=== PATIENT | male | born 1950 | race Caucasian/White ===

== ENCOUNTER 2016-12-23 14:49 | Inpatient (IN) | payer OTHER, MEDICAID ==
[2016-12-23] MEDS ORDERED: NS 1,000 ML IV ONE (15:00)
--- NOTE | 2016-12-23 15:06 | EDPHY ---
HPI/HX/ROS/PE/MDM Narrative: CHIEF COMPLAINT: AMS HPI: The patient is a 66 y/o male, with a history of dementia and seizure disorder, arriving via EMS with acute altered mentation this afternoon. He was last seen normal at 11:00 today, about 4 hours ago, prior to taking a nap. Per EMS, facility reports he generally walks and is interactive with some baseline orientation confusion. After waking him from a nap this afternoon, he was unable to walk, follow commands, or speak clearly. This symptoms continued during transport to the ED. EMS reports his BGL was 108 and his SpO2 on room air was in the 85% range. He is able to follow commands for me and tell me who he is. His speech continues to be mildly garbled and his right arm is weaker than his left. He denies pain but mentions blurred vision. He is DNR status. REVIEW OF SYSTEMS: Aside from elements discussed in the HPI, a comprehensive 10-point review of systems was reviewed and is negative. PMH: COPD, dementia, bipolar disorder, anxiety, GERD, BPH, seizure disorder - Keppra Prior medical records reviewed including ED visit 12/21/15 for suicidal ideation. SOCIAL HISTORY: Lives at [facility]. Formerly homeless and alcoholic. PHYSICAL EXAM: General:Patient is alert, in no acute distress. ENT:Eyes are normal to inspection. ENT inspection normal. Neck: Normal inspection. Full range of motion. Respiratory:No respiratory distress. Breath sounds somewhat diminished bilaterally. Cardiovascular: Regular rate and rhythm. Strong peripheral pulses. Normal cap refill. Abdomen:The abdomen is nontender to palpation. There are no peritoneal signs. There are normal bowel sounds. Back: Normal to inspection. No tenderness to palpation. Skin: Normal color. No rash. Warm and dry. Extremities: Full range of motion. 2+ pitting edema lower extremities bilaterally, otherwise normal appearance. Neuro: Oriented x1. Follows commands. Right arm weaker than left, but able to resist gravity. Equal leg raise. Mildly garbled speech. ED Course: 1452: Met EMS upon arrival and took report. IV established. Labs drawn including CBC, CHEM, troponin, BMP, PTPTT. Patient placed on epic cupid analyst. Chest x-ray and head CT ordered. Study: CT of the Head Indication: AMS, arm weakness Results: CT scan of the head was obtained. The results of the study are nothing acute. The study was read by the radiologist, Dr. Pinto. I viewed the images myself on the PACS system. Study: Chest x-ray Indication: AMS, arm weakness Results: Chest x-ray was obtained. The results of the study are Diffuse interstitial edema versus pneumonitis versus new chronic interstitial lung disease since 2008. The study was read by the radiologist, Dr. Pinto. I viewed the images myself on the PACS system. The 12 lead EKG was interpreted by myself. EKG shows sinus rhythm rate 79. See hard copy and/or "tracemaster" electronic copy for interpretation. 1650: Spoke with Dr. Gross, hospitalist. She accepts admission. MDM: This patient presents with altered mental status, hypoxia. The etiology is unclear. I doubt stroke and there is no evidence of hemorrhagic stroke. Patient does not appear septic. He does not appear to have pneumonia. He requires admission the hospital for further workup. Given his history, I think there is a decent chance this represents a seizure with postictal confusion. - Data Points Laboratory Results: Laboratory Results 12/23/16 15:05 12/23/16 15:05 12/23/16 15:05 WBC 6.04 10^3/uL (3.80-9.50) RBC 4.47 10^6/uL (4.40-6.38) Hgb 10.9 L g/dL (13.7-17.5) Hct 36.6 L % (40.0-51.0) MCV 81.9 fL (81.5-99.8) MCH 24.4 L pg (27.9-34.1) MCHC 29.8 L g/dL (32.4-36.7) RDW 18.0 H % (11.5-15.2) Plt Count 263 10^3/uL (150-400) MPV 10.2 fL (8.7-11.7) Neut % (Auto) 64.9 % (39.3-74.2) Lymph % (Auto) 17.2 % (15.0-45.0) Rains % (Auto) 13.1 H % (4.5-13.0) Eos % (Auto) 3.3 % (0.6-7.6) Baso % (Auto) 1.3 % (0.3-1.7) Nucleat RBC Rel Count 0.5 H % (0.0-0.2) Absolute Neuts (auto) 3.92 10^3/uL (1.70-6.50) Absolute Lymphs (auto) 1.04 10^3/uL (1.00-3.00) Absolute Monos (auto) 0.79 10^3/uL (0.30-0.80) Absolute Eos (auto) 0.20 10^3/uL (0.03-0.40) Absolute Basos (auto) 0.08 10^3/uL (0.02-0.10) Absolute Nucleated RBC 0.03 H 10^3/uL (0-0.01) Immature Gran % 0.2 % (0.0-1.1) Immature Gran # 0.01 10^3/uL (0.00-0.10) PT 14.6 SEC (12.0-15.0) INR 1.15 (0.83-1.16) APTT 34.8 SEC (23.0-38.0) Sodium 144 mEq/L (134-144) Potassium 4.2 mEq/L (3.5-5.2) Chloride 110 mEq/L (97-110) Carbon Dioxide 21 L mEq/l (22-31) Anion Gap 13 mEq/L (8-16) BUN 16 mg/dL (7-23) Creatinine 0.7 mg/dL (0.7-1.3) Estimated GFR > 60 Glucose 89 mg/dL (70-100) Calcium 9.6 mg/dL (8.5-10.4) Troponin I < 0.012 ng/mL (0-0.034) NT-Pro-B Natriuret Pep 576 H pg/mL (0-125) Medications Given: Discontinued Medications Sodium Chloride (Ns) 1,000 mls @ 0 mls/hr IV ONCE ONE PRN Reason: Wide Open Stop: 12/23/16 15:01 Last Admin: 12/23/16 15:22 Dose: 1,000 mls General Time Seen by Provider: 12/23/16 14:52 Initial Vital Signs: Initial Vital Signs Temperature (C) 36.9 C 12/23/16 15:14 Heart Rate 77 12/23/16 15:14 Respiratory Rate 16 12/23/16 15:14 Blood Pressure 129/81 H 12/23/16 15:14 O2 Sat (%) 94 12/23/16 15:14 O2 Delivery Mode Oxymizer O2 (L/minute) 6 Allergies/Adverse Reactions: No Known Allergies Allergy (Unverified 08/27/09 21:32) Home Medications: Medication Instructions Recorded Acetaminophen [Tylenol 325mg (*)] 650 mg PO Q6 PRN 12/23/16 Albuterol [Proventil Neb] 2.5 mg IH Q2 PRN 12/23/16 Benztropine Mesylate [Cogentin 1 mg PO DAILY 12/23/16 (RX)] Docusate Sodium [Colace 100 MG (*)] 100 mg PO BID 12/23/16 Ferrous Sulfate [Ferrous Sulf 325 325 mg PO DAILY 12/23/16 MG (*)] Fluticasone/Vilanterol [Breo 1 puffs IH DAILY 12/23/16 Ellipta 200-25 Mcg INH] Gabapentin [Neurontin] 600 mg PO BID 12/23/16 Ibuprofen [Motrin (*)] 200 mg PO Q6 PRN 12/23/16 Ipratropium/Albuterol [Duoneb (*)] 1 vial IH Q4H PRN 12/23/16 Lorazepam [Ativan] 0.5 mg PO Q8 PRN 12/23/16 Multivitamins [Multivitamin (*)] 1 tab PO DAILY 12/23/16 Omeprazole Magnesium [Prilosec Otc] 20 mg PO DAILY 12/23/16 Sennosides [Senokot 8.6mg (OTC)] 2 tab PO DAILY PRN 12/23/16 Tamsulosin HCl [Flomax 0.4 MG (*)] 0.4 mg PO HS 12/23/16 clonazePAM [Klonopin (*)] 0.25 mg PO TID 12/23/16 levETIRAcetam [Keppra 500 mg (*)] 500 mg PO BID 12/23/16 oxyCODONE/APAP 5/325 [Percocet 1 tab PO Q6 PRN 12/23/16 5/325 (*)] risperiDONE [Risperdal] 2 mg PO BID 12/23/16 Departure - Departure Disposition: [facility] Clinical Impression: Hypoxia Altered mental status Qualifiers: Altered mental status type: disorientation Qualifier Code: (R41.0) Disorientation, unspecified Condition: Fair Report Scribed for: Geovany Figueroa Report Scribed by: Kesha Graves Date of Report: 12/23/16 Time of Report: 15:06 Physician Review and Approval Statement: Portions of this note were transcribed by an ED scribe. I personally performed the history, physical exam, and medical decision making; and confirm the accuracy of the information in the transcribed note.
--- NOTE | 2016-12-23 15:21 | CPEKG ---
Heart Rate: 79 RR Interval: 759 P-R Interval: 152 QRSD Interval: 92 QT Interval: 396 QTC Interval: 455 P [place]: 38 QRS [place]: 16 T Wave [place]: 26 EKG Severity - OTHERWISE NORMAL ECG - EKG Impression: SINUS RHYTHM EKG Impression: LOW VOLTAGE IN FRONTAL LEADS Electronically Signed By: Efrain Galvan 24-Dec-2016 22:21:01
[2016-12-23 15:29] LABS: INR 1.15 (0.83-1.16); PROTIME(PATIENT) 14.6 SEC (12.0-15.0)
[2016-12-23 15:30] LABS: APTT 34.8 SEC (23.0-38.0)
[2016-12-23 15:31] LABS: % IMMATURE GRANULYOCYTES 0.2 % (0.0-1.1); ABSOLUTE IMMATURE GRANULOCYTES 0.01 10^3/uL (0.00-0.10); ABSOLUTE NRBC COUNT 0.03 10^3/uL (0-0.01); ADD DIFF? NO; ADD MORPH? NO; ADD SCAN? NO; ATYPICAL LYMPHOCYTE FLAG 40 (0-99); FRAGMENT RBC FLAG 40 (0-99); HEMATOCRIT 36.6 % (40.0-51.0); HEMOGLOBIN 10.9 g/dL (13.7-17.5); LEFT SHIFT FLG 0 (0-99); LIPEMIA HEMOLYSIS FLAG 70 (0-99); MEAN CELL HEMOGLOBIN 24.4 pg (27.9-34.1); MEAN CELL HEMOGLOBIN CONCENTR. 29.8 g/dL (32.4-36.7); MEAN CELL VOLUME 81.9 fL (81.5-99.8); MEAN PLATELET VOLUME 10.2 fL (8.7-11.7); NRBC-AUTO% 0.5 % (0.0-0.2); PLATELET CLUMPS FLAG 30 (0-99); PLATELET COUNT 263 10^3/uL (150-400); RED BLOOD CELL COUNT 4.47 10^6/uL (4.40-6.38)
[2016-12-23 15:37] LABS: ANION GAP 13 mEq/L (8-16); CALCIUM 9.6 mg/dL (8.5-10.4); CARBON DIOXIDE 21 mEq/l (22-31); CHLORIDE 110 mEq/L (97-110); CREATININE 0.7 mg/dL (0.7-1.3); GLOMERULAR FILTRATION RATE > 60; GLUCOSE 89 mg/dL (70-100); POTASSIUM 4.2 mEq/L (3.5-5.2); SODIUM 144 mEq/L (134-144)
[2016-12-23 15:48] LABS: TROPONIN I < 0.012 ng/mL (0-0.034)
--- NOTE | 2016-12-23 15:57 | CT ---
CT Head Without Contrast History: Seizure disorder, dementia, new slurred speech. Technique: Noncontrast images through the head. Soft tissue and bone window evaluation is performed. Dose reduction techniques were utilized. Findings: There is greater than expected for age severe supra and infratentorial cerebral atrophy. Th ere is a right inferior temporal encephalomalacia consistent with a remote cortical infarction. There is no evidence for hemorrhage, mass lesion, acute infarction, intracranial edema, hydrocephalus or a bnormal intracranial calcification. No subarachnoid blood is identified. There is no midline shift. T he ambient cistern is patent. Bone window evaluation reveals normally aerated paranasal and mastoid s inuses. There is no evidence of pneumocephalus. A right and left old parietal craniotomy bone flap ar e in good position. Impression: Nothing acute identified Results called to Dr. Figueroa. General information for patients regarding this examination can be found at [email or web address]. If you have questions or comments about this report, please contact me at [phone] (hospital) or [phone] (cell).
--- NOTE | 2016-12-23 16:00 | DX ---
Portable Chest 15:35 History: Hypoxia Comparison: August 28, 2009 Findings: There is diffuse new interstitial disease suspicious for interstitial pulmonary edema, inte rstitial pneumonitis or development of chronic interstitial lung disease since 2008. There is no foca l consolidation. It is difficult to exclude tiny pleural effusions. Some asymmetric density in the me dial right apex is stable since 2008 and likely represents scarring. There is a chronic right shoulde r replacement. EKG leads and oxygen tubing overlies the chest. Impression: Diffuse interstitial edema versus pneumonitis versus new chronic interstitial lung diseas e since 2008.
[2016-12-23] MEDS ORDERED: ONDANSETRON 4 MG/2 ML VIAL IVP PRN (17:05)
[2016-12-23] MEDS ORDERED: ONDANSETRON DISINTEGRATING 4 MG TAB PO PRN (17:05)
[2016-12-23] MEDS ORDERED: ACETAMINOPHEN 325 MG TAB PO PRN (17:05)
[2016-12-23] MEDS ORDERED: NS 1,000 ML IV SCH (17:15)
[2016-12-23] MEDS ORDERED: NALOXONE HCL 0.4 MG/ML INJ ONE (17:57)
[2016-12-23 17:58] LABS: COLOR YELLOW; LEUKOCYTE ESTERASE,URINE 2+ (NEGATIVE); NITRITE,URINE POSITIVE (NEGATIVE)
[2016-12-23] MEDS ORDERED: NALOXONE HCL 0.4 MG/ML INJ IVP ONE ×2 (18:08→18:20)
[2016-12-23 18:18] LABS: BACTERIA 1+ /hpf (NONE SEEN); WBC,URINE 50-182 /hpf (0-3)
[2016-12-23 18:21] LABS: PHENCYCLIDINE URINE BCH < 6 ng/ml (NEGATIVE); PHENCYCLIDINE URINE BCH NEGATIVE (NEGATIVE); TETRAHYDROCANNABINOL URINE < 5 ng/mL (NEGATIVE); TETRAHYDROCANNABINOL URINE NEGATIVE (NEGATIVE)
[2016-12-23] MEDS ORDERED: levETIRAcetam 1,000 MG in NS 100 ML IV ONE (19:30)
--- NOTE | 2016-12-23 20:15 | GHP ---
[f rep st] HISTORY AND PHYSICAL DATE OF ADMISSION: 12/23/2016 CHIEF COMPLAINT: Acute encephalopathy. HISTORY OF PRESENT ILLNESS: A 66-year-old male with a history of dementia, COPD, and a seizure disor fracisco, who presents from [facility] after being found somnolent and unable to engage in conversation after waking up from his nap. The patient was reportedly in his normal sta te of health early in the afternoon when he laid down to take a nap and after his rest time was diffi cult to arouse, unable to converse in conversation. Per [facility], the patient did not have foca l complaints earlier this morning. Had not had measured fevers, had not had a new cough, reported sh ortness of breath. Had not reported chest pain, any gastrointestinal symptoms or illnesses. Had bee n eating and drinking normally preceding lying down for his nap. In the emergency department, the pa joceline will open his eyes to sternal rub and did converse with the emergency room doctor in a limited fashion. Did not present specific complaints, but is unable to answer my questions on interview. PAST MEDICAL HISTORY: 1. COPD, 3 L dependent oxygen. 2. Dementia. 3. Bipolar disorder. 4. Anxiety. 5. Gastroesophageal reflux disease. 6. BPH. 7. Seizure disorder, on Keppra. SOCIAL HISTORY: Lives at [facility] in the Memory Care Unit. Formerly homeless, and formerly an alcoholic. ADVANCED DIRECTIVES: The patient is Do Not Resuscitate per his chart. REVIEW OF SYSTEMS: A 10-point review of systems was limited from what we were able to obtain from [facility] providers. PHYSICAL EXAMINATION: VITAL SIGNS: Blood pressure in the emergency department: 129/81, heart rate 7 7, respiratory rate 16, 94% on 8 L, 36.9. GENERAL: This is a middle-aged male, lying quietly in bed . HEENT: Notable for dry mucous membranes. EYE EXAM: Pupils are symmetric. The patient opens eye s to command only. CARDIAC: Patient is regular rate and rhythm. PULMONARY: No rales or rhonchi ar e appreciated either anterior or posterior. GASTROINTESTINAL: Positive bowel sounds. ABDOMEN: Sof t. MUSCULOSKELETAL: Negative for any lower extremity edema. SKIN: Negative for any obvious rashes . NEUROLOGIC: The patient is only opening his eyes to command. Otherwise not conversant. Appears to be moving all 4 of his extremities intermittently. MUSCULOSKELETAL: Patient has profound clubbing of the hands and feet. DATA: White count 6, hematocrit 36 which is baseline, platelets of 263. Sodium 144, creatinine 0.7. Troponin less than 0.012. Noncontrast CT of the head, which I personally reviewed and interpreted, shows no acute findings. Chest x-ray, which I personally reviewed and interpreted, shows diffuse bi lateral interstitial markings. RADIOLOGY NOTES: Chronic interstitial lung changes in 2009 on my review less severe. ASSESSMENT AND PLAN: This is a 66-year-old male with dementia living on a memory care unit. Brought in for acute encephalopathy. 1. Acute encephalopathy. CT imaging on presentation is negative. On the patient's neurologic exam he appears to be moving all 4 extremities intermittently. Would be concerned for a possible ingestio n and/or acute intoxication. Will send urinalysis to rule out acute urinary tract infection. 2. Intermittent uncontrolled seizures, overmedication with home medications. Will hold sedating med ications, order a drug screen. Will consult Neurology if the drug screen is negative for recommendat ions related to his underlying seizure disorder. Will also attempt Narcan while the patient is in [facility] emergency department. 3. Acute on chronic hypoxic respiratory failure. Patient has had a progression in his interstitial markings since last image in 2008. He has peripheral findings consistent with chronic ongoing hypoxi a with his clubbing. It is possible that we are seeing progression of disease. However, does not ex plain an acute increase in his oxygen requirement from 3 reported in the outpatient setting to 8 unle ss it is related to his acute encephalopathy and somnolence. Will attempt to treat or reverse his ac [place] encephalopathy and see if we are able to improve his oxygenation. 4. Bipolar disorder. Will hold his medications overnight in hopes that we see improvement in his me ntal status. 5. Dementia. The patient is already on a memory care unit, but I do believe based on nursing report he is far from his baseline. 6. Prophylaxis with Lovenox. DIET: N.p.o. as the patient is not protecting his airway. DISPOSITION: I expect greater than 2 midnights as the patient is presenting with acute encephalopath y requiring close monitoring and care. Discussed the case with the emergency room physician. Enoch mercado will be triaged to the medical-surgical floor for care. /[id number]/MODL
[2016-12-23] MEDS ORDERED: IOPAMIDOL (ISOVUE-300) 100 ML BTL IV ONE (20:29)
--- NOTE | 2016-12-23 21:11 | DX ---
AP Supine Abdomen, Two Views, at 8:20 p.m. Clinical History: 66-year-old male who needs to be evaluated for a potential brainstem stroke (is cu rrently nonverbal, and there are no consenting family members). This exam was obtained for MRI clear ance. Comparison Study: Chest radiography from earlier this afternoon. Findings: Telemetry monitoring lead lines are present. The caudal margin of a right shoulder arthro plasty (intramedullary humeral arturo) is present. There are old healed left-sided rib fractures. The cardiac silhouette is enlarged, and there is diffuse peribronchial thickening, with interstitial lung changes. There is mild constipation. There is no abnormal small bowel dilatation. There is athero sclerotic calcification of the abdominal aorta. There are some degenerative features of the hips. T here are no metallic radiopaque foreign bodies projected over the abdomen which would preclude perfor quoc of MR imaging. Senescent features of the spine are noted, with some mid to lower thoracic comp ression deformities. Impression: There is no contraindication to MRI performance based upon this abdominal radiographic s tudy. This information was discussed with the electroneurodiagnostic technologist.
--- NOTE | 2016-12-23 21:27 | MR ---
MRI of the Brain (Without Contrast) Clinical History: 66-year-old male inpatient who is nonverbal and has a seizure disorder with dementi a, and earlier today had some new slurred speech. Rule out brainstem stroke. Technique: Sagittal and axial T1, axial T2, FLAIR, susceptibility weighted, and diffusion-weighted im aging of the brain. Comparison Study: Unenhanced CT scan of the brain, from earlier today at 3:24 p.m. Findings: Again: There is advanced cerebral cortical atrophy with ventriculomegaly and cortical sulca l widening, and also a component of cerebellar cortical atrophy. There is some localized encephalomal acia in the right inferior temporal cortex, consistent with a prior remote infarction. There are scat tered nonspecific periventricular subcortical white matter hyperintensities, most consistent with chr onic microvascular ischemic gliosis in a patient of this age. The DWI sequences do not reveal any res tricted diffusion to suggest an acute or subacute infarction, however. The SWI sequences demonstrate some "blooming" artifact in the left superior frontal subcortex and also in the superior right pariet al cortex, which likely represent areas of old hemosiderin and/or magnetic susceptibility from adjace nt craniotomy hardware. There is no acute intra or extra-axial blood collection. The craniocervical j unction, sella turcica, pineal gland, orbits, and the cerebellopontine angles are normal. There are a ppropriate vertebrobasilar, carotid artery, and dural venous sinus flow voids. There is some minor mu cosal thickening associated with the maxillary sinuses and the frontal-ethmoidal recesses. The mastoi ds are patent. There are vertebrobasilar, carotid artery, and dural venous sinus flow voids. Impression: 1. There is no MR evidence of an acute or subacute infarction. 2. Advanced cerebral and bvtq-fw-[id number] cerebellar cortical atrophy, with chronic microvascular isc hemic gliosis. 3. 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 4. Remote postoperative changes to the superior portions of the right and left calvarium.
--- NOTE | 2016-12-23 21:59 | CT ---
Contrast Enhanced CT Scan of the Chest Clinical History: 66-year-old male inpatient with acute hypoxia and infiltrates. Technique: Following the uneventful intravenous administration of 75 mL of Isovue-300, standard helic al CT imaging of the chest was obtained utilizing 5.00 mm collimated slices through the thorax, and r eformatted at 1.25 mm and 4/3 mm overlapping increments. Multiplanar reconstructions are reviewed. D ose reduction techniques were utilized. Comparison Studies: Chest radiography from earlier this afternoon and dated August 28, 2009, and [facility] CT imaging dated 08/26/2009 (retrieved from archive status). Findings: Lung Windows: There is moderate diffuse centrilobular emphysema, most pronounced in the qzj-sm-jnyzx lung zones. Small subpleural bullous changes are seen in the medial apices. Diffuse peribronchial thi ckening is observed, with widely scattered areas of peripheral paraseptal interstitial lung disease, progressive from the 2008 CT evaluation. There are areas of compressive atelectasis versus mild infil trates seen posteriorly in the right and left lower lobes. Mediastinal Windows: There are some shotty nonspecific superior mediastinal lymph nodes, at the level of the prevascular space, AP window, paratracheal and precarinal spaces, and then also involving hil a. These may be reactive in etiology. The heart is enlarged, and there is atherosclerotic calcificati on associated with the LAD, and left circumflex coronary arteries. There is also some atherosclerotic calcification seen in association with the aortic root. The descending thoracic aorta is borderline- ectatic, measuring 3.5 x 3.6 cm. The descending thoracic aorta is at the upper limits of normal, [place] uring 2.8 x 2.9 cm. There is no dissection. There is no pericardial effusion. The visualized portions of the thyroid gland are normal. The imaged portion of the upper abdomen is notable for dependent de nsity in the gallbladder, consistent with either a tiny stone or sludge. A hiatal hernia is present. Osseous Windows: There is a right shoulder arthroplasty. Multilevel owrd-ci-wxubrynh thoracic and upp er lumbar compression fractures are seen, similar in distribution to previous studies, consistent wit h severe osteoporosis. Multiple old left-sided rib fractures are seen from the left 2nd through 10th rib levels, with incomplete osseous fusion of the left 7th through 10th ribs. Impression: 1. Moderate diffuse centrilobular emphysema with peripheral paraseptal interstitial lung disease and diffuse perihilar bronchitis, progressive from a 2009 CT study. 2. Compressive atelectasis versus mild infiltrates posteriorly in the right and left lower lobes. 3. Nonspecific mediastinal and hilar lymphadenitis. 4. Cardiomegaly with left-sided coronary artery atherosclerotic calcification. 5. Cholelithiasis versus gallbladder sludge. Sonography of the more definitive. 6. Hiatal hernia. 7. Multilevel compression fractures, consistent with severe osteoporosis.
[2016-12-23] MEDS: LORazepam 2 MG/ML INJ IVP SCH (22:26)
[2016-12-24 04:59] LABS: % IMMATURE GRANULYOCYTES 0.3 % (0.0-1.1); ABSOLUTE IMMATURE GRANULOCYTES 0.02 10^3/uL (0.00-0.10); ADD DIFF? NO; ADD MORPH? NO; ADD SCAN? NO; ATYPICAL LYMPHOCYTE FLAG 30 (0-99); FRAGMENT RBC FLAG 20 (0-99); HEMATOCRIT 32.1 % (40.0-51.0); HEMOGLOBIN 9.6 g/dL (13.7-17.5); LEFT SHIFT FLG 0 (0-99); LIPEMIA HEMOLYSIS FLAG 70 (0-99); MEAN CELL HEMOGLOBIN 25.3 pg (27.9-34.1); MEAN CELL HEMOGLOBIN CONCENTR. 29.9 g/dL (32.4-36.7); MEAN CELL VOLUME 84.5 fL (81.5-99.8); MEAN PLATELET VOLUME 9.9 fL (8.7-11.7); PLATELET CLUMPS FLAG 0 (0-99); PLATELET COUNT 213 10^3/uL (150-400); RED CELL DISTRIBUTION WIDTH 18.3 % (11.5-15.2)
[2016-12-24 05:23] LABS: CARBON DIOXIDE 19 mEq/l (22-31); CREATININE 0.6 mg/dL (0.7-1.3); GLOMERULAR FILTRATION RATE > 60; GLUCOSE 125 mg/dL (70-100); SODIUM 139 mEq/L (134-144)
[2016-12-24 05:24] LABS: CALCIUM 8.5 mg/dL (8.5-10.4)
[2016-12-24 05:32] LABS: ANION GAP 9 mEq/L (8-16); CHLORIDE 111 mEq/L (97-110)
[2016-12-24] MEDS: levETIRAcetam 1,000 MG in NS 100 ML IV SCH ×2 (08:53→20:15)
[2016-12-24] MEDS: ENOXAPARIN 40 MG/0.4 ML SYR SC SCH (08:53)
[2016-12-24] MEDS: LORazepam 2 MG/ML INJ IVP SCH ×2 (08:54→20:15)
[2016-12-24 09:06] LABS: BASE EXCESS -2.7 mEq/L (-2.5-2.5); BICARBONATE 21 mEq/L (22-26); MEASURED OXYGEN SATURATION 89 % (92-95); PCO2 33 mmHg (34-38); PO2 61 mmHg (65-75); TCO2 22 mEq/L (23-27)
[2016-12-24] MEDS: Fluticasone/Vilanterol [Breo Ellipta 200-25 Mcg Inh] IH SCH (11:42)
--- NOTE | 2016-12-24 12:58 | HOSPPROG ---
Hospitalist Progress Note Assessment/Plan: 66-year-old man with a history of dementia in long-term care at [facility] is admitted with altered mental status. His symptoms have cleared over time which is most consistent with a likely unwitnessed seizure at the skilled nursing # altered mental status in a man with seizure disorder which has since cleared. Workup is unremarkable. I suspect he had a unwitnessed seizure and was postictal at the time of admission. He is back to baseline. * Appreciate Neurology * Continue usual medication # acute on chronic hypoxic respiratory failure reviewed CT scan which did show evidence of bronchitis and COPD. * Treat for acute COPD exacerbation with prednisone and nebulizer * Treat for bronchitis with Zithromax and ceftriaxone * Will follow up chest x-ray if his oxygen needs do not improve with the above measures # pyuria, unknown if this is infection versus asymptomatic pyuria. However given his altered mental status and hypoxia with possible sepsis will go ahead and treat this with ceftriaxone and await cultures # dementia # bipolar disease # seizure disorder, see above on Keppra # GERD # DVT prophylaxis on Lovenox * Subjective: Patient new to me, chart reviewed. Still requiring high O2 however he is relatively asymptomatic with this and is back to baseline as far as his mental status Objective: Vital Signs Temp Pulse Resp BP Pulse Ox 36.6 C 85 18 139/71 H 94 12/24/16 11:54 12/24/16 11:54 12/24/16 11:54 12/24/16 11:54 12/24/16 11:54 Laboratory Results 12/24/16 04:47 12/24/16 04:47 12/23/16 12/24/16 12/25/16 05:59 05:59 05:59 Intake Total 1200 740 Output Total 1450 1000 Balance -250 -260 PT 14.6 SEC (12.0-15.0) 12/23/16 15:05 INR 1.15 (0.83-1.16) 12/23/16 15:05 - Physical Exam Constitutional: not in pain, chronically ill appearing Eyes: PERRL, anicteric sclera, EOMI Ears, Nose, Mouth, Throat: moist mucous membranes, hearing normal Cardiovascular: regular rate and rhythym, no murmur, rub, or gallop Respiratory: reduced air movement, respiratory distress, No expiratory wheeze, No inspiratory crackles Gastrointestinal: normoactive bowel sounds, soft, non-tender abdomen, no palpable masses Genitourinary: no bladder fullness Skin: warm, normal color Neurologic: AAOx3, No facial droop Psychiatric: interacting appropriately, not anxious, not encephalopathic ICD10 Worksheet Patient Problems: Problems Problem Status Diagnosed Altered mental status Acute Hypoxia Acute
--- NOTE | 2016-12-24 14:33 | GCON ---
[f rep st] CONSULTATION INPATIENT CONSULTATION NOTE DATE OF CONSULTATION: 12/24/2016 REFERRING PHYSICIAN: Margi Gross MD CHIEF COMPLAINT: Confusion. HISTORY OF PRESENT ILLNESS: Dr. Margi Gross of the hospitalist service consulted Neurology for cande luation of the patient's mentation. Results of evaluation are placed in the EMR for review. This is a 66-year-old male with a prior reported history of homelessness, bipolar disorder, and right temporal lobe stroke whom has significant dementia and lived long-term in the [facility]. Apparently he resides at his baseline until December 23, 2016, when he went to lie down for a nap. When they attempted arousal from the nap, he was very somnolent. No seizures witnessed. He has no focal weakness. There is no explanation for why he was more somnolent than usual, so he was sent to [facility] emergency room. There, a head CT showed no acute changes. He was a dmitted for further evaluation. The next morning, the patient is much more awake and aware and able to answer questions. He is only oriented to person, but given his history of dementia so severe requ iring placement, this may represent his baseline. PAST MEDICAL HISTORY: Dementia, seizure disorder, old right temporal stroke, COPD, BPH, bipolar diso rder, anxiety, GERD. SOCIAL HISTORY: He is a long-term resident at [facility], formerly homeless. FAMILY HISTORY: The patient denies any significant family history when I ask him, but he does not machado ve great awareness of his situation. REVIEW OF SYSTEMS: Negative for patient, but, again, due to his dementia, it is difficult to determi ne if this is accurate or not. PHYSICAL EXAMINATION: VITAL SIGNS: Blood pressure 118/67, heart rate 79, respirations 18, saturatin g 91% on oxygen, temperature 37.1 degrees Celsius. GENERAL: No acute distress. EYES: Funduscopic exam could not visualize optic discs. LUNGS: Clear to auscultation bilaterally. No rhonchi or rale s. HEART: Regular rate and rhythm. No murmurs. No carotid bruits auscultated. NEUROLOGIC: Menta l status, alert and oriented to person, but not place or date. Memory appears impaired. Fund of kno wledge decreased. Language normal. Cranial nerves: Pupils equal, round, reactive to light. Visual kasper full to confrontation. Extraocular muscles intact. Bilateral face: Intact sensation and mo tor movement. Hearing intact to conversation. Uvula raises symmetrically. Tongue protrudes midline . Trapezius: 5/5 strength. Motor exam: Normal tone all 4 extremities. Strength appears full to 4 extremities, but he has difficulties following strength testing commands. The subtle deficits could been missed. Sensory: All 4 extremities intact to light touch. Reflexes: Bilateral biceps 2/4. Coordination: Bilateral rapid alternating movements grossly intact. Gait deferred. LABS: December 23, 2016: CBC with hematocrit of 36.6. Coagulation panel within normal limits. Chem istry with a CO2 of 21. UA shows positive nitrates and 2+ leukocyte esterase. RADIOLOGY: December 23, 2016: A brain MRI without contrast showed atrophy, chronic microvascular dis ease, and old right temporal stroke, but nothing acute. I personally visualized this study. ASSESSMENT: 1. Baseline severe dementia requiring placement with worsening somnolence, now resolved: It is uncl ear why the patient had worsening somnolence last night. Given his significant dementia, he is at [facility] for sundowning and episodes of acute confusion that could cause somnolence. He also may have a mi ld urinary tract infection. Regardless of the cause, he has improved, and his brain MRI shows no new acute problems. 2. Positive urinalysis, possible urinary tract infection. 3. Old right temporal stroke. RECOMMENDATIONS: 1. Agree with pending urine culture. 2. Keppra dosing had been increased overnight, but as it does not appear he had any seizures and imp roved, I would recommend transitioning him back to his home dose of Keppra 500 mg b.i.d. at discharge . I would not change his baseline home medications which he came in on from a neurology perspective unless he fails to improve back to his baseline. 3. The patient appears to be improving. Neurology will check in on him tomorrow morning, if still p resent, but if he is completely back to baseline and all acute medical problems have resolved, it wou ld not be unreasonable to return him to [facility] when the hospitalist service f eels it is appropriate. Neurology will continue to follow at this point. /[id number]/MODL
[2016-12-24] MEDS: IPRATROPIUM/ALBUTEROL 3 ML DEYVIAL IH SCH (16:10)
[2016-12-24] MEDS: AZITHROMYCIN 250 MG TAB PO SCH (17:16)
[2016-12-24] MEDS: predniSONE 20 MG TAB PO SCH (17:16)
[2016-12-25] MEDS: IPRATROPIUM/ALBUTEROL 3 ML DEYVIAL IH SCH ×5 (00:20→23:55)
[2016-12-25] MEDS: OXYCODONE/APAP 5/325 TAB PO PRN ×2 (06:30→12:49)
[2016-12-25] MEDS: LORazepam 2 MG/ML INJ IVP SCH (07:59)
[2016-12-25] MEDS: ENOXAPARIN 40 MG/0.4 ML SYR SC SCH (07:59)
[2016-12-25] MEDS: predniSONE 20 MG TAB PO SCH (08:00)
[2016-12-25] MEDS: AZITHROMYCIN 250 MG TAB PO SCH (08:00)
--- NOTE | 2016-12-25 08:49 | NEUROPROG ---
Assessment: I reviewed the case and feel that the patient is probably close to his baseline based on limited information we have in the fact that I have never seen before. It is probably appropriate to discharge back to the care facility he came from and continue his Keppra with a prior history of seizure and prior history of stroke apparently. There is clearly a cognitive disorder, but this is not new and no evidence of encephalitis, seizure, or new stroke. Imaging was unremarkable for anything new. I will sign off. Please contact with any additional questions. Subjective: I am seeing Sal today as a new patient to me, but he was seen yesterday neurologic consultation by Dr. Quintero. The patient says that he has no specific complaints today. He denies focal numbness or weakness. He admits to history of seizures but is not aware of what is occurring over the last few days that led to being hospitalized. I have reviewed the medical records. It is clear that he had some alteration from his baseline which is why we were consulted. Dr. Quintero did not feel it was clear that an actual seizure occurred or that any changes should be made his medication. He has made a follow-up to see how the patient was doing. Although I do not know the patient's true baseline, it sounds as if he has been stable in the last 24 hours and he says he is hoping to be able to go home. He is denying any chest pain or shortness of breath. Objective: Vital Signs Temp Pulse Resp BP Pulse Ox 36.9 C 76 14 126/73 H 95 12/25/16 07:06 12/25/16 07:06 12/25/16 07:06 12/25/16 07:06 12/25/16 07:06 Laboratory Results 12/24/16 04:47 12/24/16 04:47 12/24/16 12/25/16 12/26/16 05:59 05:59 05:59 Intake Total 1200 1540 Output Total 1450 1650 350 Balance -250 -110 -350 PT 14.6 SEC (12.0-15.0) 12/23/16 15:05 INR 1.15 (0.83-1.16) 12/23/16 15:05 Neck is supple with no bruits or masses. Cardiac exam regular rate and rhythm with no murmur. He is alert with decreased concentration and attention. He is not oriented to the month or the year or the location. He said he was in [place]. He is not very reliable for his past history any detail and carries a diagnosis of dementia already. Pupils are 3 mm and reactive. Extraocular movements are intact. Normal facial sensation and strength. Motor exam reveals a little bit of weakness proximally and more on the right than the left. Allergies/Adverse Reactions: No Known Allergies Allergy (Unverified 08/27/09 21:32)
[2016-12-25 08:50] LABS: % IMMATURE GRANULYOCYTES 0.5 % (0.0-1.1); ABSOLUTE IMMATURE GRANULOCYTES 0.04 10^3/uL (0.00-0.10); ADD DIFF? NO; ADD MORPH? NO; ADD SCAN? NO; ATYPICAL LYMPHOCYTE FLAG 20 (0-99); FRAGMENT RBC FLAG 20 (0-99); HEMATOCRIT 36.2 % (40.0-51.0); HEMOGLOBIN 10.9 g/dL (13.7-17.5); LEFT SHIFT FLG 0 (0-99); LIPEMIA HEMOLYSIS FLAG 80 (0-99); MEAN CELL HEMOGLOBIN 24.5 pg (27.9-34.1); MEAN CELL HEMOGLOBIN CONCENTR. 30.1 g/dL (32.4-36.7); MEAN CELL VOLUME 81.5 fL (81.5-99.8); MEAN PLATELET VOLUME 10.4 fL (8.7-11.7); PLATELET CLUMPS FLAG 0 (0-99); PLATELET COUNT 261 10^3/uL (150-400); RED BLOOD CELL COUNT 4.44 10^6/uL (4.40-6.38); RED CELL DISTRIBUTION WIDTH 17.6 % (11.5-15.2)
[2016-12-25] MEDS: Fluticasone/Vilanterol [Breo Ellipta 200-25 Mcg Inh] IH SCH (09:02)
[2016-12-25 09:03] LABS: ANION GAP 10 mEq/L (8-16); CARBON DIOXIDE 20 mEq/l (22-31); CHLORIDE 107 mEq/L (97-110); CREATININE 0.6 mg/dL (0.7-1.3); GLOMERULAR FILTRATION RATE > 60; GLUCOSE 174 mg/dL (70-100); POTASSIUM 3.8 mEq/L (3.5-5.2); SODIUM 137 mEq/L (134-144)
[2016-12-25] MEDS ORDERED: ACETAMINOPHEN 325 MG TAB PO PRN (09:08)
[2016-12-25] MEDS ORDERED: SENNOSIDES 1 TAB PO PRN (09:08)
[2016-12-25] MEDS ORDERED: LORazepam 0.5 MG TAB PO PRN (09:08)
[2016-12-25] MEDS ORDERED: IBUPROFEN 200 MG TAB PO PRN (09:08)
--- NOTE | 2016-12-25 09:12 | HOSPPROG ---
Hospitalist Progress Note Assessment/Plan: 66-year-old man with a history of dementia in long-term care at [facility] is admitted with altered mental status. His symptoms have cleared over time which is most consistent with a likely [facility] # altered mental status in a man with seizure disorder which has since cleared. Workup is unremarkable. I suspect he had a unwitnessed seizure and was postictal at the time of admission. He is back to baseline. * Appreciate Neurology * Continue usual medication * DC IV Keppra * Will await urine cultures and continue ceftriaxone for now. * Of note, RN noted that oxygen needs seem to increase after patient takes pain meds. # acute on chronic hypoxic respiratory failure reviewed CT scan which did show evidence of bronchitis and COPD. * Treat for acute COPD exacerbation with prednisone and nebulizer * Treat for bronchitis with Zithromax and ceftriaxone * Will follow up chest x-ray if his oxygen needs do not improve with the above measures # pyuria, unknown if this is infection versus asymptomatic pyuria. However given his altered mental status and hypoxia with possible sepsis will go ahead and treat this with ceftriaxone and await cultures # dementia # bipolar disease # seizure disorder, see above on Keppra # GERD # DVT prophylaxis on Lovenox * Subjective: Patient denies any shortness of breath. He says he feels fine and wants to go home. He is still requiring elevated oxygen. Objective: Vital Signs Temp Pulse Resp BP Pulse Ox 36.9 C 76 14 126/73 H 95 12/25/16 07:06 12/25/16 07:06 12/25/16 07:06 12/25/16 07:06 12/25/16 07:06 Laboratory Results 12/25/16 08:43 12/25/16 08:43 12/24/16 12/25/16 12/26/16 05:59 05:59 05:59 Intake Total 1200 1540 Output Total 1450 1650 350 Balance -250 -110 -350 PT 14.6 SEC (12.0-15.0) 12/23/16 15:05 INR 1.15 (0.83-1.16) 12/23/16 15:05 - Physical Exam Constitutional: no apparent distress, chronically ill appearing Eyes: PERRL Ears, Nose, Mouth, Throat: moist mucous membranes Cardiovascular: regular rate and rhythym, systolic murmur Respiratory: no respiratory distress, expiratory wheeze, bronchial breath sounds Gastrointestinal: normoactive bowel sounds, soft, non-tender abdomen, no palpable masses Genitourinary: no bladder fullness Skin: warm, normal color Neurologic: No facial droop Psychiatric: interacting appropriately ICD10 Worksheet Patient Problems: Problems Problem Status Diagnosed Altered mental status Acute Hypoxia Acute
[2016-12-25] MEDS ORDERED: NON-FORMULARY NEW DRUG (Gabapentin [Neurontin] 600 MG) PO SCH (09:15)
[2016-12-25] MEDS ORDERED: NON-FORMULARY NEW DRUG (Omeprazole Magnesium [Prilosec Otc] 20 MG) PO SCH (09:15)
[2016-12-25] MEDS: GABAPENTIN 300 MG CAP PO SCH ×2 (09:51→22:08)
[2016-12-25] MEDS: PANTOPRAZOLE SODIUM 40 MG TAB PO SCH (09:51)
[2016-12-25] MEDS: levETIRAcetam 500 MG TAB PO SCH ×2 (09:51→22:08)
[2016-12-25] MEDS: risperiDONE 2 MG TAB PO SCH ×2 (09:51→22:08)
[2016-12-25] MEDS: BENZTROPINE MESYLATE 1 MG TAB PO SCH (09:51)
[2016-12-25] MEDS: levETIRAcetam 1,000 MG in NS 100 ML IV SCH (09:56)
[2016-12-25] MEDS: clonazePAM 0.5 MG TAB PO SCH ×2 (16:11→22:08)
[2016-12-25] MEDS ORDERED: TAMSULOSIN HCL 0.4 MG CAP PO SCH (21:00)
[2016-12-25] MEDS: DOCUSATE SODIUM 100 MG CAP PO SCH (22:08)
[2016-12-25] MEDS: NICOTINE 14 MG/24 HR PATCH TD SCH (22:09)
[2016-12-26] MEDS: IPRATROPIUM/ALBUTEROL 3 ML DEYVIAL IH SCH ×2 (05:31→12:04)
[2016-12-26 06:14] LABS: ANION GAP 9 mEq/L (8-16); CALCIUM 9.2 mg/dL (8.5-10.4); CARBON DIOXIDE 23 mEq/l (22-31); CHLORIDE 111 mEq/L (97-110); CREATININE 0.6 mg/dL (0.7-1.3); GLOMERULAR FILTRATION RATE > 60; GLUCOSE 97 mg/dL (70-100); POTASSIUM 4.2 mEq/L (3.5-5.2); SODIUM 143 mEq/L (134-144)
[2016-12-26] MEDS ORDERED: FERROUS SULFATE 325 MG TAB PO SCH (09:00)
[2016-12-26] MEDS ORDERED: MULTIVITAMINS 1 EACH TAB PO SCH (09:00)
[2016-12-26] MEDS: Fluticasone/Vilanterol [Breo Ellipta 200-25 Mcg Inh] IH SCH (09:23)
[2016-12-26] MEDS: ENOXAPARIN 40 MG/0.4 ML SYR SC SCH (10:10)
[2016-12-26] MEDS: NICOTINE 14 MG/24 HR PATCH TD SCH (10:13)
[2016-12-26] MEDS: GABAPENTIN 300 MG CAP PO SCH (10:14)
[2016-12-26] MEDS: risperiDONE 2 MG TAB PO SCH (10:14)
[2016-12-26] MEDS: BENZTROPINE MESYLATE 1 MG TAB PO SCH (10:14)
[2016-12-26] MEDS: AZITHROMYCIN 250 MG TAB PO SCH (10:14)
[2016-12-26] MEDS: predniSONE 20 MG TAB PO SCH (10:14)
[2016-12-26] MEDS: DOCUSATE SODIUM 100 MG CAP PO SCH (10:14)
[2016-12-26] MEDS: PANTOPRAZOLE SODIUM 40 MG TAB PO SCH (10:14)
[2016-12-26] MEDS: levETIRAcetam 500 MG TAB PO SCH (10:14)
[2016-12-26] MEDS: clonazePAM 0.5 MG TAB PO SCH (10:15)
[2016-12-26 10:33] VITALS: BP 134/83; TEMP 97.7; O2SAT 91
--- NOTE | 2016-12-26 10:55 | PDIAF ---
- Diagnosis Diagnosis: copd exacerbation, ams, resolved Code Status: Do Not Resuscitate - Medication Management Discharge Medications: Medications to Continue on Transfer Acetaminophen [Tylenol 325mg (*)] 650 mg PO Q6 PRN 12/23/16 [Last Taken Unknown] Albuterol [Proventil Neb] 2.5 mg IH Q2 PRN 12/23/16 [Last Taken Unknown] Benztropine Mesylate [Cogentin] 1 mg PO DAILY 12/23/16 [Last Taken 12/23/16 08: 00] Docusate Sodium [Colace 100 MG (*)] 100 mg PO BID 12/23/16 [Last Taken 12/23/16 08:00] Ferrous Sulfate [Ferrous Sulf 325 MG (*)] 325 mg PO DAILY 12/23/16 [Last Taken 12/23/16 08:00] Fluticasone/Vilanterol [Breo Ellipta 200-25 Mcg INH] 1 puffs IH DAILY 12/23/16 [ Last Taken 12/23/16 08:00] Gabapentin [Neurontin] 600 mg PO BID 12/23/16 [Last Taken 12/23/16 08:00] Ibuprofen [Motrin (*)] 200 mg PO Q6 PRN 12/23/16 [Last Taken Unknown] Multivitamins [Multivitamin (*)] 1 tab PO DAILY 12/23/16 [Last Taken 12/23/16 08 :00] Omeprazole Magnesium [Prilosec Otc] 20 mg PO DAILY 12/23/16 [Last Taken 08:00] Sennosides [Senokot] 2 tab PO DAILY PRN 12/23/16 [Last Taken Unknown] Tamsulosin HCl [Flomax 0.4 MG (*)] 0.4 mg PO HS 12/23/16 [Last Taken 12/22/16 20 :00] clonazePAM [Klonopin (*)] 0.25 mg PO TID 12/23/16 [Last Taken 12/23/16 08:00] levETIRAcetam [Keppra 500 mg (*)] 500 mg PO BID 12/23/16 [Last Taken 12/23/16 08 :00] risperiDONE [Risperdal] 2 mg PO BID 12/23/16 [Last Taken 12/23/16 08:00] Azithromycin [Zithromax] 500 mg PO DAILY #2 tab 12/26/16 [Last Taken Unknown] Ipratropium/Albuterol [Duoneb (*)] 3 ml IH Q6 #0 deyvial 12/26/16 [Last Taken Unknown] [facility]cf Antibiotics: zithromax for 2-3 more days Discharge Medications: Refer to the Discharge Home Medication list for PRN reason. - Orders Services needed: Registered Nurse, Certified Psychiatric Nurse Practitioner, Master Senior Telecommunications Consultant , Physical Therapy, Occupational Therapy Oxygen: 5-6 lmp prn Diet Recommendation: no restrictions on diet Diet Texture: Regular Texture Diet Additional: consider sleep study for central sleep apnea - Follow Up Care Current Providers and Referrals: JAN MUNIZ [Primary Care Provider] -
--- NOTE | 2016-12-26 11:16 | GDS ---
[f rep st] DISCHARGE SUMMARY DIAGNOSES: 1. Altered mental status secondary to unwitnessed seizure most likely. Patient returned to baseline soon after arriving at the hospital. 2. Chronic obstructive pulmonary disease exacerbation secondary to bronchitis with [id number] respiratory failure. 3. High suspicion for central obstructive sleep apnea, patient intolerant of CPAP, requires increase d oxygen at night while sleeping. 4. Dementia. 5. Bipolar disease. 6. Seizure disorder on Keppra. 7. Gastroesophageal reflux disease. PROCEDURES DONE: 1. Head CT without contrast showing nothing acute. 2. Brain MRI showing no acute strokes. 3. Chest CT showing no pneumonia, moderate diffuse emphysema with bronchitis. CONSULTATIONS: Taco Tucker from neurology. HOSPITAL COURSE: The patient is a 66-year-old with a history of dementia in long-term care. He has a history of seizure disorder on Keppra, as well as COPD and chronic respiratory failure. He has see n Dr. Chrisitanson in the past. He was admitted with altered mental status and lethargy. On admission, he was somnolent and unable to engage in conversation after waking up from his nap. He was admitted t o the hospital. CT and MRI showed no central lesion. A couple hours after arriving to the hospital, he was back to baseline as far as his mental status. He did require oxygen while here. Usually he needs 5 L during the day and at night he requires increased oxygen levels. However, there is no obvi ous infection found. He did respond to nebulizers. I suspect this is [id number] COPD exacerba tion which will need ongoing oxygen therapy. He is on chronic oxygen at the senior living. At the ti me of discharge, he is saturating over 90% on 5 L nasal cannula. He says he has no complaints, he fe els good, and he is ambulating around the room at baseline. He tends to be much more somnolent after waking up and I suspect this is secondary to some undiagnosed sleep apnea. Recommend a sleep study once he leaves the hospital. CONDITION ON DISCHARGE: Good. VITAL SIGNS: He is afebrile. O2 sat is 91% on 5 L. Heart rate 76, blood pressure 134/83. GENERAL: He is a 66-year-old. He is in no distress. He is alert and approp riate, but has significant short-term memory issues. DISCHARGE MEDICATIONS: Please see discharge medication form. He will finish up a prescription for Z ithromax to complete 5 days. Continue DuoNeb. FOLLOWUP INSTRUCTIONS: He will be discharged back to [facility] for long-term care, and I recomme nd monitoring his oxygen at night. If it continues to drop, he should be evaluated for possible slee p study as an outpatient. Total time spent with patient on day of discharge is 35 minutes. /[id number]/MODL
[2016-12-26 12:15] VITALS: PULSE 83; RESP 18
== END 2016-12-26 14:12 | DRG 100 ==
LOC: EDUNIT# → OBSVTOIN 17:06 → F3N 18:06
PROVIDERS: ADMIT Hospitalist; ATTEND Internal Medicine
DX: G40.909 Epilepsy, unspecified, not intractable, without status epilepticus (principal); R41.82 Altered mental status, unspecified; J44.1 Chronic obstructive pulmonary disease with (acute) exacerbation; J96.21 Acute and chronic respiratory failure with hypoxia; F31.9 Bipolar disorder, unspecified; K21.9 Gastro-esophageal reflux disease without esophagitis; F03.90 Unspecified dementia, unspecified severity, without behavioral disturbance, psychotic disturbance, mood disturbance, and anxiety; G47.31 Primary central sleep apnea; Z66 Do not resuscitate; Z99.81 Dependence on supplemental oxygen
CPT/HCPCS: 80307; 97116-GP; 97161-GP; 97165-GO; 97530-GP; G0480; G8978-GP-CK; G8979-GP-CI; G8987-GO-CK; G8988-GO-CK; J0696; J1650; J1953; J2310; Q9967

== ENCOUNTER 2017-01-21 15:25 | Inpatient (IN) | payer OTHER, MEDICAID ==
--- NOTE | 2017-01-21 15:48 | CPEKG ---
Heart Rate: 99 RR Interval: 606 P-R Interval: 136 QRSD Interval: 88 QT Interval: 312 QTC Interval: 401 P Olean: 42 QRS Olean: 12 T Wave Olean: 10 EKG Severity - BORDERLINE ECG - EKG Impression: SINUS RHYTHM EKG Impression: BORDERLINE T ABNORMALITIES, ANTERIOR LEADS Electronically Signed By: Lori Hernandez 21-Jan-2017 18:50:53
--- NOTE | 2017-01-21 15:53 | EDPHY ---
H & P Stated Complaint: Hypoxia since resolved HPI/ROS: CHIEF COMPLAINT: Patient has no complaints HISTORY OF PRESENT ILLNESS: This is a 66-year-old male a history of COPD, dementia, bipolar disorder who was transferred to the emergency department from [facility] after he was found with a reported pulse oximetry reading of 38%. He is chronically on 6 L of oxygen per the paramedics (although his records indicate that he is on 3 L oxygen). When the paramedics arrived they found him to be standing in the room with pulse ox in the low 90s on 7 L oxygen. No further information available. REVIEW OF SYSTEMS: Patient is unable to reliably provide. Source: Patient, EMS, [facility] records, Old records - Personal History Current Tetanus/Diphtheria Vaccine: Unsure Current Tetanus Diphtheria and Acellular Pertussis (TDAP): Unsure - Medical/Surgical History PMH: PMH includes: 1. Dementia with behavioral disturbance 2. Bipolar disorder 3. COPD 4. Anxiety 5. Convulsions 6. Anemia 7. GERD 8. BPH 9. History of ETOH abuse Reviewed facility paperwork with his medical history. Hx Asthma: No Hx Chronic Respiratory Disease: Yes Hx Diabetes: No Hx Cardiac Disease: No Hx Renal Disease: No Hx Cirrhosis: No Hx Alcoholism: Yes Hx HIV/AIDS: No Hx Splenectomy or Spleen Trauma: No Other PMH: ETOH, back pain, sz, brain surg, COPD, bipolar, GERD - Social History Smoking Status: Current every day smoker Alcohol Use: None Additional Social History: Smoker. Lives at [facility] in a memory care unit. - Physical Exam Exam: General Appearance: Alert. Vital signs reviewed. Temperature 36.9 on arrival . Heart rate just over 100. BP 128/82. 91% on 10 L oximizer. Eyes: Pupils equal and round, no conjunctival injection, no discharge. Anicteric. ENT, Mouth: Mucous membranes are moist, no oropharyngeal erythema or edema. Neck: No lymphadenopathy, supple. Trachea midline. Respiratory: Lungs are distant; no wheezes, rales, or rhonchi. Cardiovascular: Tachycardic; no murmur, rub, or gallop. Gastrointestinal: Abdomen is soft and nontender, no masses or organomegaly, bowel sounds normal. Skin: Warm and dry, no rashes on exposed skin, normal color. Back: Nontender to palpation over the thoracolumbar spine. Extremities: Trace lower extremity edema, no calf tenderness or swelling. Neurological: Alert and oriented to person and to hospital. Moving all four extremities easily and equally. ERIKA. EOMI. Facial expressions symmetric. Psychiatric: Normal affect. No agitation. Constitutional: Initial Vital Signs Temperature (C) 36.9 C 01/21/17 15:33 Heart Rate 107 H 01/21/17 15:33 Respiratory Rate 18 01/21/17 15:33 Blood Pressure 128/82 H 01/21/17 15:33 O2 Sat (%) 91 L 01/21/17 15:33 O2 Delivery Mode Room Air O2 (L/minute) 6 Allergies/Adverse Reactions: No Known Allergies Allergy (Unverified 01/21/17 15:32) Home Medications: Medication Instructions Recorded Acetaminophen [Tylenol 325mg (*)] 650 mg PO Q6 PRN 12/23/16 Benztropine Mesylate [Cogentin] 1 mg PO DAILY 12/23/16 Docusate Sodium [Colace 100 MG (*)] 100 mg PO BID 12/23/16 Ferrous Sulfate [Ferrous Sulf 325 325 mg PO DAILY 12/23/16 MG (*)] Fluticasone/Vilanterol [Breo 1 puffs IH DAILY 12/23/16 Ellipta 200-25 Mcg INH] Gabapentin [Neurontin] 600 mg PO BID 12/23/16 Multivitamins [Multivitamin (*)] 1 tab PO DAILY 12/23/16 Omeprazole Magnesium [Prilosec Otc] 20 mg PO DAILY 12/23/16 Sennosides [Senokot] 2 tab PO DAILY PRN 12/23/16 Tamsulosin HCl [Flomax 0.4 MG (*)] 0.4 mg PO HS 12/23/16 clonazePAM [Klonopin (*)] 0.25 mg PO TID 12/23/16 levETIRAcetam [Keppra 500 mg (*)] 500 mg PO BID 12/23/16 risperiDONE [Risperdal] 2 mg PO BID 12/23/16 Ipratropium/Albuterol [Duoneb (*)] 3 ml IH Q6 #0 deyvial 12/26/16 FLUoxetine [Prozac 20 MG (*)] 20 mg PO DAILY 01/21/17 Ipratropium/Albuterol [Duoneb (*)] 3 ml IH Q4 PRN 01/21/17 oxyCODONE/APAP 5/325 [Percocet 1 tab PO Q6H PRN 01/21/17 5325 (*)] Medical Decision Making ED Course/Re-evaluation: IV established. Sepsis labs drawn. Chest x-ray ordered. He does not meet screening criteria for sepsis. Lactate WNL. 1600: He arrived with temp of 36.9 but patient now has a fever of 38.2C. 1000mg PO Tylenol and 0.5mg PO Klonopin administered (klonopin is a regular medication for him) Study: Chest x-ray Indication: Hypoxemia Results: Chest x-ray was obtained. The results of the study are Hypoventilatory change with cardiac enlargement and bilateral interstitial infiltrates with areas of more focal alveolar consolidation above the right minor fissure and at the right lung base than on 12/23/2016. The study was read by the radiologist, Dr. Dutton. I viewed the images myself on the PACS system. 1705: Reevaluated patient. His current SpO2 is 92% on 10lpm via NRB, improved to 95% when sitting up. He continues to have distant breath sounds. Plan for duo neb and 1gm IV Cefepime given as initial antibiotic for suspected pneumonia (he lives [facility]). 1730: Spoke with hospitalist service. Dr. Red accepts admission. 1800: Reassessed patient. His SpO2 is varying between the 80s and low 90s. Breath sounds are distant. 1900: Patient is lying on his side, resting comfortably. Pulse ox is in the low 90s. He has defervesced. Differential Diagnosis: Shortness of breath including but not limited to pulmonary infectious process, COPD, asthma, pulmonary embolus and congestive heart failure. - Data Points Laboratory Results: Laboratory Results 01/21/17 15:58 01/21/17 15:58 Medications Given: Discontinued Medications Acetaminophen (Tylenol) 1,000 mg PO EDNOW ONE Stop: 01/21/17 16:15 Last Admin: 01/21/17 16:21 Dose: 1,000 mg Albuterol/Ipratropium (Duoneb) 3 ml IH EDNOW ONE Stop: 01/21/17 17:01 Last Admin: 01/21/17 17:20 Dose: 3 ml Clonazepam (Klonopin) 0.5 mg PO EDNOW ONE Stop: 01/21/17 17:11 Last Admin: 01/21/17 17:20 Dose: 0.5 mg Cefepime HCl 1 gm/ Dextrose 50 mls @ 100 mls/hr IV EDNOW ONE PRN Reason: Protocol Stop: 01/21/17 17:28 Last Admin: 01/21/17 17:56 Dose: 50 mls Oxycodone/Acetaminophen (Percocet 5/325) 1 tab PO EDNOW ONE Stop: 01/21/17 18:57 Last Admin: 01/21/17 19:01 Dose: 1 tab Departure - Departure Disposition: [facility] Clinical Impression: Hypoxemia Dementia Qualifiers: Dementia type: unspecified type Dementia behavioral disturbance: with behavioral disturbance Qualified Code(s): F03.91 - Unspecified dementia with behavioral disturbance Pneumonia Qualifiers: Pneumonia type: due to unspecified organism Laterality: unspecified laterality Lung location: unspecified part of lung Qualified Code(s): J18.9 - Pneumonia, unspecified organism Condition: Fair Report Scribed for: Lori Hernandez Report Scribed by: Kesha Graves Date of Report: 01/21/17 Time of Report: 16:10 Physician Review and Approval Statement: 01/21/17 15:56 Portions of this note were transcribed by the medical staff manager. I, Dr. Lori Hernandez, personally performed the history, physical exam, and medical decision- making; and confirmed the accuracy of the information in the transcribed note.
[2017-01-21] MEDS ORDERED: ACETAMINOPHEN 500 MG TAB PO ONE (16:14)
[2017-01-21 16:33] LABS: ANION GAP 8 mEq/L (8-16); BILIRUBIN,TOTAL 0.8 mg/dL (0.1-1.4); CALCIUM 8.7 mg/dL (8.5-10.4); CARBON DIOXIDE 20 mEq/l (22-31); CHLORIDE 106 mEq/L (97-110); CREATININE 0.8 mg/dL (0.7-1.3); GLOMERULAR FILTRATION RATE > 60; GLUCOSE 119 mg/dL (70-100); POTASSIUM 4.5 mEq/L (3.5-5.2); SODIUM 134 mEq/L (134-144); SPECIMEN HEMOLYSIS 106
[2017-01-21 16:36] LABS: INR 1.26 (0.83-1.16); PROTIME(PATIENT) 15.8 SEC (12.0-15.0)
[2017-01-21 16:37] LABS: APTT 38.3 SEC (23.0-38.0)
[2017-01-21 16:50] LABS: % IMMATURE GRANULYOCYTES 0.6 % (0.0-1.1); ABSOLUTE IMMATURE GRANULOCYTES 0.07 10^3/uL (0.00-0.10); ADD DIFF? NO; ADD MORPH? YES; ADD SCAN? NO; ATYPICAL LYMPHOCYTE FLAG 60 (0-99); FRAGMENT RBC FLAG 40 (0-99); HEMATOCRIT 37.9 % (40.0-51.0); HEMOGLOBIN 11.6 g/dL (13.7-17.5); LEFT SHIFT FLG 10 (0-99); LIPEMIA HEMOLYSIS FLAG 80 (0-99); MEAN CELL HEMOGLOBIN 25.2 pg (27.9-34.1); MEAN CELL HEMOGLOBIN CONCENTR. 30.6 g/dL (32.4-36.7); MEAN CELL VOLUME 82.4 fL (81.5-99.8); PLATELET CLUMPS FLAG 0 (0-99); PLATELET COUNT 207 10^3/uL (150-400)
[2017-01-21] MEDS ORDERED: CEFEPIME HCL 1 GM in D5W 50 ML IV ONE (16:59)
[2017-01-21] MEDS ORDERED: IPRATROPIUM/ALBUTEROL 3 ML DEYVIAL IH ONE (17:00)
[2017-01-21 17:01] LABS: RED CELL DISTRIBUTION WIDTH 21.1 % (11.5-15.2)
[2017-01-21] MEDS ORDERED: clonazePAM 0.5 MG TAB PO ONE (17:10)
[2017-01-21 17:37] LABS: ECHINOCYTES 1+; HYPOCHROMIA 1+; MICROCYTES 1+; PLATELET ESTIMATE ADEQUATE (ADEQ)
[2017-01-21] MEDS ORDERED: OXYCODONE/APAP 5/325 TAB PO ONE (18:56)
[2017-01-21] MEDS: HALOPERIDOL LACT 5 MG/ML INJ IVP PRN (20:20)
[2017-01-21] MEDS ORDERED: ACETAMINOPHEN 325 MG TAB PO PRN ×2 (21:15→21:16)
[2017-01-21] MEDS ORDERED: ONDANSETRON 4 MG/2 ML VIAL IVP PRN (21:15)
[2017-01-21] MEDS ORDERED: ONDANSETRON DISINTEGRATING 4 MG TAB PO PRN (21:15)
[2017-01-21] MEDS ORDERED: SENNOSIDES 1 TAB PO PRN (21:16)
--- NOTE | 2017-01-21 21:49 | GHP ---
DATE OF ADMISSION: 01/21/2017 CHIEF COMPLAINT: Hypoxia. HISTORY OF PRESENT ILLNESS: History is obtained from chart and from ER physicians. Patient does machado ve significant dementia and was agitated and received some Haldol and is not answering questions at this time. This is a 66-year-old male who lives at [facility]. He has a history of dementia, [place] PD and seizures. He lives in memory care unit at [facility], and he is a former alcoholic. Appa rently, he was found with a pulse ox of 78%. He is chronically on 6 L of oxygen. Apparently, when the paramedics arrived he was actually saturating in the low 90s on 7 L of oxygen. He does have a n ew infiltrate on his chest x-ray and a fever here in the emergency department. REVIEW OF SYSTEMS: Unable to obtain secondary to patient's dementia. MEDICATIONS: Reviewed. PAST MEDICAL HISTORY: 1. COPD. He was recently discharged on 5 L of oxygen. 2. Dementia. 3. Possible sleep apnea. 4. History of bipolar. 5. History of seizure disorder. 6. BPH. 7. GERD. 8. Anxiety. SOCIAL HISTORY: He lives at [facility]. Formally homeless and formally alcoholic. FAMILY HISTORY: Unable to be obtained. PHYSICAL EXAMINATION: VITAL SIGNS: Afebrile. Blood pressure is 113/70, heart rate 83, oxygen satu ration is 90% on 10 L. GENERAL: The patient is well developed in no apparent distress but quite so mnolent. HEENT: Nonicteric sclerae. Moist mucous membranes. NECK: Supple. LUNGS: Poor effort but fairly clear to auscultation. No wheezes. CARDIOVASCULAR: Regular rate and rhythm. No murmur s, rubs or gallops. ABDOMEN: Positive bowel sounds. Soft, nontender, nondistended. No hepatosple nomegaly. EXTREMITIES: No clubbing, cyanosis or edema. SKIN: Without rash. Warm, dry, intact. NEURO: Does wake up to stimulation but is currently sleeping. PSYCH: Unable to be assessed. LABS: White blood cell count is 10, hemoglobin 11, platelets are 207. Chemistry is essentially nor mal. Chest x-ray, personally reviewed and interpreted, shows new consolidation on the right. ASSESSMENT: This is a 66-year-old male presenting with probable new pneumonia. PLAN: 1. Healthcare-associated pneumonia. Patient is at a healthcare facility and was recently discharge d. We will cover for healthcare-associated pneumonia. There is definitely a possibility that he mi ght aspirate and we will choose Zosyn for better anaerobic coverage. He did already receive cefepim e in the emergency department. Because of his increased oxygen requirement, we will probably need t o add vancomycin as well. 2. Acute and chronic hypoxic respiratory failure. We will continue oxygen therapy. 3. Dementia. 4. Bipolar. 5. Chronic bronchitis on CT scan. 6. The patient is a DNR per chart. 7. Admission. Patient will be admitted under full admission status. Case was discussed with ER ph ysician. Old records reviewed and summarized in the HPI. /[id number]/MODL
[2017-01-21] MEDS: VANCOMYCIN 750 MG in D5W 150 ML IV SCH (22:16)
[2017-01-21] MEDS: NS 1,000 ML IV SCH (22:17)
[2017-01-21] MEDS: clonazePAM 0.5 MG TAB PO SCH (22:56)
[2017-01-21] MEDS: OXYCODONE/APAP 5/325 TAB PO PRN (22:57)
[2017-01-22] MEDS: PIPERACILLIN/TAZO 3.375 GM/DEX 50 ML IV SCH ×4 (00:19→17:00)
[2017-01-22 03:44] LABS: COLOR PALE YELLOW; LEUKOCYTE ESTERASE,URINE NEGATIVE (NEGATIVE); NITRITE,URINE NEGATIVE (NEGATIVE)
[2017-01-22] MEDS: IPRATROPIUM/ALBUTEROL 3 ML DEYVIAL IH SCH ×5 (04:46→20:53)
[2017-01-22 06:07] LABS: % IMMATURE GRANULYOCYTES 0.4 % (0.0-1.1); ABSOLUTE IMMATURE GRANULOCYTES 0.03 10^3/uL (0.00-0.10); ADD DIFF? NO; ADD MORPH? YES; ADD SCAN? NO; ATYPICAL LYMPHOCYTE FLAG 50 (0-99); FRAGMENT RBC FLAG 20 (0-99); HEMATOCRIT 37.4 % (40.0-51.0); HEMOGLOBIN 11.4 g/dL (13.7-17.5); LEFT SHIFT FLG 0 (0-99); LIPEMIA HEMOLYSIS FLAG 80 (0-99); MEAN CELL HEMOGLOBIN 25.9 pg (27.9-34.1); MEAN CELL HEMOGLOBIN CONCENTR. 30.5 g/dL (32.4-36.7); MEAN PLATELET VOLUME 10.7 fL (8.7-11.7); PLATELET CLUMPS FLAG 10 (0-99); PLATELET COUNT 194 10^3/uL (150-400)
[2017-01-22 06:08] LABS: ALANINE AMINOTRANSFERASE 30 IU/L (21-72); ALBUMIN 3.2 g/dL (3.5-5.0); ALKALINE PHOSPHATASE 76 IU/L (38-126); ANION GAP 11 mEq/L (8-16); ASPARTATE AMINOTRANSFERASE 20 IU/L (17-59); CALCIUM 8.6 mg/dL (8.5-10.4); CARBON DIOXIDE 20 mEq/l (22-31); CHLORIDE 110 mEq/L (97-110); CREATININE 0.6 mg/dL (0.7-1.3); GLOMERULAR FILTRATION RATE > 60; GLUCOSE 101 mg/dL (70-100); POTASSIUM 4.1 mEq/L (3.5-5.2); SODIUM 141 mEq/L (134-144); TOTAL PROTEIN 6.4 g/dL (6.3-8.2)
[2017-01-22 06:15] LABS: RED CELL DISTRIBUTION WIDTH 20.8 % (11.5-15.2)
[2017-01-22 07:16] LABS: ELLIPTOCYTES 1+; KERATOCYTES 1+; MICROCYTES 1+; PLATELET ESTIMATE ADEQUATE (ADEQ); POLYCHROMASIA 1+
[2017-01-22] MEDS ORDERED: NON-FORMULARY NEW DRUG (Gabapentin [Neurontin] 600 MG) PO SCH (09:00)
[2017-01-22] MEDS ORDERED: NON-FORMULARY NEW DRUG (Omeprazole Magnesium [Prilosec Otc] 20 MG) PO SCH (09:00)
[2017-01-22] MEDS: Fluticasone/Vilanterol [Breo Ellipta 200-25 Mcg Inh] 1 PUFF IH SCH (09:32)
[2017-01-22] MEDS: GABAPENTIN 300 MG CAP PO SCH ×2 (09:57→20:01)
[2017-01-22] MEDS: clonazePAM 0.5 MG TAB PO SCH ×3 (09:58→22:21)
[2017-01-22] MEDS: DOCUSATE SODIUM 100 MG CAP PO SCH ×2 (09:58→20:00)
[2017-01-22] MEDS: PANTOPRAZOLE SODIUM 40 MG TAB PO SCH (09:59)
[2017-01-22] MEDS: FERROUS SULFATE 325 MG TAB PO SCH (09:59)
[2017-01-22] MEDS: risperiDONE 2 MG TAB PO SCH ×2 (09:59→20:01)
[2017-01-22] MEDS: OXYCODONE/APAP 5/325 TAB PO PRN ×3 (09:59→22:21)
[2017-01-22] MEDS: BENZTROPINE MESYLATE 1 MG TAB PO SCH (09:59)
[2017-01-22] MEDS: ENOXAPARIN 40 MG/0.4 ML SYR SC SCH (10:00)
[2017-01-22] MEDS: FLUoxetine 20 MG CAP PO SCH (10:00)
[2017-01-22] MEDS: levETIRAcetam 500 MG TAB PO SCH ×2 (10:00→20:00)
[2017-01-22] MEDS: VANCOMYCIN 750 MG in D5W 150 ML IV SCH ×2 (10:02→22:21)
[2017-01-22] MEDS ORDERED: FLUTICASONE/SALMETER 250/50MCG DISKUS IH SCH (10:30)
[2017-01-22] MEDS: FLUTICASONE/SALMETER 250/50MCG DISKUS IH SCH ×2 (11:03→20:53)
--- NOTE | 2017-01-22 12:10 | HOSPPROG ---
Hospitalist Progress Note Assessment/Plan: Acute on chronic hypoxemic respiratory failure in setting of HCAP and COPD - desatting to low 80's on 15 LPM O2. WBC's and lactate normalized, no fevers. BCx's pending. Check sputum culture. -Cont Vanc/Zosyn while awaiting Cx data -Change to q4h duoneb, q2h prn albuterol -with increased wheezing, will start IV solumedrol -start vapotherm for better oxygenation -may benefit from bipap Bipolar - cont outpt meds including risperdal, ssri, klonopin, requiring prn haldol for behavioral disturbances / impulsivity and agitation GERD - PPI DNR Dispo - cont inpt Subjective: Pt resting comfortably. RN reports impulsivity. Denies CP, appears a bit SOB. No fevers. Objective: Vital Signs Temp Pulse Resp BP Pulse Ox 36.5 C 79 22 H 109/67 91 L 01/22/17 07:26 01/22/17 11:06 01/22/17 11:06 01/22/17 07:26 01/22/17 11:06 Laboratory Results 01/22/17 05:25 01/22/17 05:25 01/21/17 01/22/17 01/23/17 05:59 05:59 05:59 Intake Total 1350 Output Total 1500 125 Balance -150 -125 PT 15.8 SEC (12.0-15.0) H 01/21/17 15:58 INR 1.26 (0.83-1.16) H 01/21/17 15:58 - Physical Exam Constitutional: no apparent distress Eyes: PERRL Ears, Nose, Mouth, Throat: moist mucous membranes Cardiovascular: regular rate and rhythym Respiratory: no respiratory distress, reduced air movement, expiratory wheeze Gastrointestinal: normoactive bowel sounds, soft, non-tender abdomen Skin: warm Neurologic: AAOx3 Psychiatric: interacting appropriately ICD10 Worksheet Patient Problems: Problems Problem Status Onset Dementia Acute Hypoxemia Acute Pneumonia Acute Altered mental status Acute Hypoxia Acute
[2017-01-22] MEDS ORDERED: ALBUTEROL 3 ML DEYVIAL IH PRN (12:15)
[2017-01-22] MEDS: methylPREDNISolone SOD SUCC 125 MG/2 ML VIAL IVP SCH ×2 (13:18→20:04)
[2017-01-22] MEDS: HALOPERIDOL LACT 5 MG/ML INJ IVP PRN (15:34)
[2017-01-22 18:43] LABS: BASE EXCESS -6.4 mEq/L (-2.5-2.5); BICARBONATE 18 mEq/L (22-26); MEASURED OXYGEN SATURATION 97 % (92-95); PCO2 32 mmHg (34-38); PO2 98 mmHg (65-75); TCO2 19 mEq/L (23-27)
[2017-01-22 18:44] LABS: O2 CONCENTRATIION 75 % (0-100); P/F RATIO 131 RATIO
[2017-01-22] MEDS: TAMSULOSIN HCL 0.4 MG CAP PO SCH (20:01)
[2017-01-22] MEDS: NS 1,000 ML IV SCH (20:05)
[2017-01-23] MEDS: PIPERACILLIN/TAZO 3.375 GM/DEX 50 ML IV SCH ×4 (00:05→18:21)
[2017-01-23] MEDS: HALOPERIDOL LACT 5 MG/ML INJ IVP PRN (01:02)
[2017-01-23] MEDS: IPRATROPIUM/ALBUTEROL 3 ML DEYVIAL IH SCH ×6 (01:55→21:45)
[2017-01-23] MEDS: methylPREDNISolone SOD SUCC 125 MG/2 ML VIAL IVP SCH ×2 (05:07→12:54)
[2017-01-23] MEDS: GABAPENTIN 300 MG CAP PO SCH ×2 (09:18→21:44)
[2017-01-23] MEDS: FERROUS SULFATE 325 MG TAB PO SCH (09:19)
[2017-01-23] MEDS: FLUoxetine 20 MG CAP PO SCH (09:19)
[2017-01-23] MEDS: risperiDONE 2 MG TAB PO SCH ×2 (09:20→21:44)
[2017-01-23] MEDS: BENZTROPINE MESYLATE 1 MG TAB PO SCH (09:20)
[2017-01-23] MEDS: DOCUSATE SODIUM 100 MG CAP PO SCH ×2 (09:21→21:44)
[2017-01-23] MEDS: levETIRAcetam 500 MG TAB PO SCH ×2 (09:21→21:44)
[2017-01-23] MEDS: PANTOPRAZOLE SODIUM 40 MG TAB PO SCH (09:23)
[2017-01-23] MEDS: ENOXAPARIN 40 MG/0.4 ML SYR SC SCH (09:23)
[2017-01-23] MEDS: Fluticasone/Vilanterol [Breo Ellipta 200-25 Mcg Inh] 1 PUFF IH SCH (09:36)
[2017-01-23] MEDS: FLUTICASONE/SALMETER 250/50MCG DISKUS IH SCH ×2 (09:36→21:49)
[2017-01-23] MEDS: OXYCODONE/APAP 5/325 TAB PO PRN (10:03)
[2017-01-23] MEDS: clonazePAM 0.5 MG TAB PO SCH ×3 (10:04→21:45)
[2017-01-23] MEDS: VANCOMYCIN 1.25 GM in D5W 250 ML IV SCH ×2 (11:03→23:12)
[2017-01-23] MEDS: VANCOMYCIN 750 MG in D5W 150 ML IV SCH (11:22)
--- NOTE | 2017-01-23 14:14 | HOSPPROG ---
Hospitalist Progress Note Assessment/Plan: Acute on chronic hypoxemic respiratory failure in setting of HCAP and COPD exacerbation - Requires 5 LPM at baseline. No CO2 retention, pH ok. Now on vapotherm at 26 LPM (down from 35). No overt aspiration on swallow eval. WBC' s and lactate normalized, no fevers. BCx's and sputum Cx pending. -Pulm consult given increased O2 needs, ?benefit from bronch -Cont Vanc/Zosyn while awaiting Cx data. De-escalate to Levaquin when clinically improved unless Cx otherwise directs therapy. -Cont q4h duoneb, q2h prn albuterol -Cont IV solumedrol, wean dose to BID. Ex- notes problems in past with side effects from steroids (anger, behavioral disturbance, doing ok here). -Add Mucinex Bipolar - cont outpt meds including risperdal, cogentin, ssri, klonopin. requiring prn haldol for behavioral disturbances / impulsivity and agitation, though this is improved today. Seizure disorder - seizure free here, cont Keppra. Dementia Sleep apnea - contributing to respiratory failure GERD - PPI DNR Dispo - cont inpt. Return to [facility] care when ready. Ex-, ?Francisca is MDPOA Subjective: Pt doing a bit better today. No more fevers. Requiring 26 LPM O2, but breathing improved today. Denies CP or SOB at rest. Cough better. Appetite fair. Objective: Vital Signs Temp Pulse Resp BP Pulse Ox 36.9 C 84 26 H 129/75 H 91 L 01/23/17 12:00 01/23/17 12:00 01/23/17 12:00 01/23/17 12:00 01/23/17 12:00 Laboratory Results 01/22/17 05:25 01/22/17 05:25 01/22/17 01/23/17 01/24/17 05:59 05:59 05:59 Intake Total 1350 2442 500 Output Total 1500 1225 500 Balance -150 1217 0 PT 15.8 SEC (12.0-15.0) H 01/21/17 15:58 INR 1.26 (0.83-1.16) H 01/21/17 15:58 - Physical Exam Constitutional: no apparent distress Eyes: PERRL Ears, Nose, Mouth, Throat: moist mucous membranes Cardiovascular: regular rate and rhythym Respiratory: no respiratory distress, reduced air movement, expiratory wheeze Gastrointestinal: normoactive bowel sounds, soft, non-tender abdomen Skin: warm Musculoskeletal: full muscle strength Psychiatric: poor insight, poor memory ICD10 Worksheet Patient Problems: Problems Problem Status Onset Chronic Disease Mgmt/Transitional Care Acute Dementia Acute Hypoxemia Acute Pneumonia Acute Altered mental status Acute Hypoxia Acute
[2017-01-23] MEDS: guaiFENesin 600 MG TAB.ER PO SCH ×2 (15:06→21:44)
[2017-01-23] MEDS: TAMSULOSIN HCL 0.4 MG CAP PO SCH (21:44)
--- NOTE | 2017-01-23 23:08 | GCON ---
PULMONARY CONSULTATION DATE OF CONSULTATION: 01/23/2017 REASON FOR CONSULTATION: COPD exacerbation secondary to bronchopneumonia. HISTORY: The patient has severe underlying COPD and emphysema. He has been a resident of [facility] for the last year or so. He previously lived in [place]. He was followed by Dr. Christianson for his lung disease intermittently in [place]. He has been on oxygen for a number of years. He is c hronically on DuoNeb, Breo Ellipta, as well as psychiatric medications, Percocet, etc., as noted bel ow. He is Do Not Resuscitate per his advanced directives. He does have significant dementia. Hist ory in part was obtained from a previous caregiver for the patient. The patient was admitted 2 days ago with increasing shortness of breath and hypoxemia. Apparently h e had some change in mental status as well. Chest x-ray, on admission, showed areas of increased al veolar consolidation on the right compared to a chest x-ray from approximately 1 month prior. The p atient was admitted and started on treatment for pneumonia. He was here 1 month ago presenting with altered mental status. He did not appear to have an exacerb ation of COPD at that point in time. He was on his usual 5 L of oxygen. He was discharged back to [facility]. PAST MEDICAL HISTORY: Remarkable for severe COPD and emphysema. He has a history of dementia, bipo lar disease, seizure disorder for which he takes Keppra, and gastroesophageal reflux disease. MEDICATIONS: At his correction include Risperdal, p.r.n. Percocet, Keppra, Klonopin, Flomax, omep razole, DuoNeb, Breo Ellipta, gabapentin, iron, Prozac, Cogentin, and stool softeners, as well as so me p.r.n. medications. SOCIAL HISTORY: The patient apparently was formally homeless, alcoholic, and a heavy smoker. He is in the memory care unit at [facility]. He is Do Not Resuscitate. FAMILY HISTORY: Unobtainable. REVIEW OF SYSTEMS: He denies chest pain, known heart disease, current difficulties with his breathi ng, or other specific complaints. PHYSICAL EXAMINATION: GENERAL: Reveals a gentleman who is sitting up on his bed, talking to a prev ious caregiver. VITAL SIGNS: Blood pressure is approximately 130/75, heart rate 75 and regular. H e is on Vapotherm at 25 L, with saturations in the mid to low 90s. He is afebrile. He has no pulmo nary complaints and feels he is doing fairly well. HEENT: Remarkable for the Vapotherm catheter be ing in place. Mucous membranes are somewhat dry. There is no lymphadenopathy or thyromegaly. Jugu lar venous pressure appears to be mildly elevated. CHEST: Reveals decreased breath sounds bilatera lly with expiratory scattered wheezes bilaterally, some scattered rales at the bases, and central pu lmonary congestion with cough. HEART: Regular. Heart tones are distant. Gallop could not be excl uded. P2 is likely increased. ABDOMEN: Soft, nontender. Bowel sounds are present. He is able to eat without difficulty, has no coughing. EXTREMITIES: Remarkable for 1+ edema. NEUROLOGIC: Nonf ocal. Moves all extremities equally and sensation is intact. Memory is poor related to his dementi a. DATABASE: Chest x-ray is as outlined above. CT scan of the chest shows significant bolus emphysema and areas of infiltrate and interstitial thickening at the bases. When done a month ago, there was some evidence of some infiltrate or atelectasis at the bases and some nonspecific mediastinal adeno radha. A hiatal hernia was present. LABORATORY DATA: Arterial blood gas yesterday shows a pH 7.36, pCO2 of 32, and pO2 of 98, presumabl y on the Vapotherm. White blood cell count 7,700, hematocrit 37. Platelets are normal. INR at adm ission was 1.26, PTT 38. Chemistries are essentially within normal limits. Albumin is 3.2, CO2 kenneth roximately 20. Urinalysis was negative. Tox screen was negative, except for benzodiazepines. PCR for influenza A/B was negative. ASSESSMENT: 1. Acute respiratory failure, with increased hypoxemia compared to his baseline secondary to an exa cerbation of his chronic obstructive pulmonary disease associated with bronchopneumonia. 2. Severe underlying chronic obstructive pulmonary disease with emphysema. This is associated with chronic hypoxemia. Despite this, interestingly, he is not a CO2 retainer. 3. History of bipolar disorder and dementia. 4. Advanced directives: No cor. 5. History of gastroesophageal reflux disease. PLAN AND RECOMMENDATIONS: The patient will be continued on his present treatment in the hospital. Vapotherm will be continued for now. He will be weaned down to his oxygen cannula as tolerated. Br onchodilator therapy will be continued. Antibiotics (Zosyn and vancomycin) will be continued. Ster oids are being given and can be weaned as he improves. I doubt that he can effectively take in Breo Ellipta or Advair, which he is currently being treated with secondary to the severity of his underl jennie lung disease, memory issues, etc. Nebulized steroids probably would be of better benefit. I would be happy to follow the patient with you. Further plans and recommendations will be made based on his progress over the next 12-24 hours. /[id number]/MODL
[2017-01-24] MEDS: OXYCODONE/APAP 5/325 TAB PO PRN ×3 (01:20→22:22)
[2017-01-24] MEDS: PIPERACILLIN/TAZO 3.375 GM/DEX 50 ML IV SCH ×4 (01:20→23:40)
[2017-01-24] MEDS: IPRATROPIUM/ALBUTEROL 3 ML DEYVIAL IH SCH ×6 (01:29→20:54)
[2017-01-24 06:10] LABS: ANION GAP 9 mEq/L (8-16); CALCIUM 9.1 mg/dL (8.5-10.4); CARBON DIOXIDE 19 mEq/l (22-31); CHLORIDE 110 mEq/L (97-110); CREATININE 0.6 mg/dL (0.7-1.3); GLOMERULAR FILTRATION RATE > 60; GLUCOSE 115 mg/dL (70-100); POTASSIUM 4.6 mEq/L (3.5-5.2); SODIUM 138 mEq/L (134-144)
[2017-01-24] MEDS: clonazePAM 0.5 MG TAB PO SCH ×3 (09:12→20:36)
[2017-01-24] MEDS: guaiFENesin 600 MG TAB.ER PO SCH ×2 (09:14→20:38)
[2017-01-24] MEDS: GABAPENTIN 300 MG CAP PO SCH ×2 (09:14→22:21)
[2017-01-24] MEDS: FLUoxetine 20 MG CAP PO SCH (09:16)
[2017-01-24] MEDS: BENZTROPINE MESYLATE 1 MG TAB PO SCH (09:16)
[2017-01-24] MEDS: PANTOPRAZOLE SODIUM 40 MG TAB PO SCH (09:16)
[2017-01-24] MEDS: risperiDONE 2 MG TAB PO SCH ×2 (09:17→20:39)
[2017-01-24] MEDS: DOCUSATE SODIUM 100 MG CAP PO SCH ×2 (09:17→20:39)
[2017-01-24] MEDS: levETIRAcetam 500 MG TAB PO SCH ×2 (09:17→20:39)
[2017-01-24] MEDS: FERROUS SULFATE 325 MG TAB PO SCH (09:18)
[2017-01-24] MEDS: ENOXAPARIN 40 MG/0.4 ML SYR SC SCH (09:19)
[2017-01-24] MEDS: methylPREDNISolone SOD SUCC 125 MG/2 ML VIAL IVP SCH ×2 (09:21→20:36)
[2017-01-24] MEDS: BUDESONIDE 0.5 MG/2 ML AMPUL.NEB IH SCH ×2 (10:25→20:54)
[2017-01-24] MEDS: VANCOMYCIN 1.25 GM in D5W 250 ML IV SCH ×2 (10:56→20:00)
--- NOTE | 2017-01-24 12:13 | HOSPPROG ---
Hospitalist Progress Note Assessment/Plan: Acute on chronic hypoxemic respiratory failure in setting of HCAP and COPD exacerbation - - wean Vapotherm as tolerated -Cont Vanc/Zosyn while awaiting Cx data. De-escalate to Levaquin when clinically improved unless Cx otherwise directs therapy. -Cont q4h duoneb, q2h prn albuterol -Cont IV solumedrol, wean dose to BID. Ex- notes problems in past with side effects from steroids (anger, behavioral disturbance, doing ok here). - Mucinex Bipolar - cont outpt meds including risperdal, cogentin, ssri, klonopin. requiring prn haldol for behavioral disturbances / impulsivity and agitation, though this is improved today. Seizure disorder - seizure free here, cont Keppra. Dementia Sleep apnea - contributing to respiratory failure GERD - PPI DNR Dispo - cont inpt. Return to [place] care when ready. Ex-, ?Francisca is MDPOA Subjective: Denies any fevers or chills. Reports productive cough. Objective: Vital Signs Temp Pulse Resp BP Pulse Ox 36.1 C 63 20 142/86 H 94 01/24/17 07:47 01/24/17 10:40 01/24/17 10:40 01/24/17 07:47 01/24/17 10:40 Microbiology 01/22/17 09:00 - Final Sputum, Expectorated Laboratory Results 01/22/17 05:25 01/24/17 05:15 01/23/17 01/24/17 01/25/17 05:59 05:59 05:59 Intake Total 2442 3255 650 Output Total 1225 2350 850 Balance 1217 905 -200 PT 15.8 SEC (12.0-15.0) H 01/21/17 15:58 INR 1.26 (0.83-1.16) H 01/21/17 15:58 - Physical Exam Constitutional: chronically ill appearing Cardiovascular: regular rate and rhythym, no murmur, rub, or gallop Respiratory: no respiratory distress, no rales or rhonchi, clear to auscultation , reduced air movement, rhonchi Gastrointestinal: normoactive bowel sounds, soft, non-tender abdomen, no palpable masses Neurologic: AAOx3 ICD10 Worksheet Patient Problems: Problems Problem Status Onset Chronic Disease Mgmt/Transitional Care Acute Altered mental status Acute Hypoxia Acute Hypoxemia Acute Dementia Acute Pneumonia Acute
[2017-01-24] MEDS ORDERED: ALTEPLASE 2 MG VIAL IVP PRN (12:56)
--- NOTE | 2017-01-24 20:15 | SOAPPROG ---
SOAP Progress Note Assessment/Plan: Assessment: COPD with exacerbation secondary to bronchopneumonia. Severe emphysema Probable basilar interstitial thickening, chronic Hypoxemia, chronic. On 5-6 L of oxygen at baseline. Close to this now. Dementia DVT prophylaxis: Enoxaparin GI prophylaxis: pantoprazole Plan: Continue bronchopulmonary therapies, antibiotics, steroids O2. Increase activity as tolerated. May be able to return to his [facility] facility in the next 1-2 days on oral antibiotics. Subjective: Doing well, up walking with nursing. Denies shortness of breath. Off of Vapotherm, on a Oxymizer nasal cannula Objective: Vital Signs Temp Pulse Resp BP Pulse Ox 36.7 C 60 18 145/90 H 95 01/24/17 20:00 01/24/17 20:00 01/24/17 20:00 01/24/17 20:00 01/24/17 20:00 Microbiology 01/22/17 09:00 - Final Sputum, Expectorated Laboratory Results 01/22/17 05:25 01/24/17 05:15 01/23/17 01/24/17 01/25/17 05:59 05:59 05:59 Intake Total 2442 3255 1450 Output Total 1225 2350 1250 Balance 1217 905 200 PT 15.8 SEC (12.0-15.0) H 01/21/17 15:58 INR 1.26 (0.83-1.16) H 01/21/17 15:58 Physical Exam - Physical Exam General Appearance: alert, no apparent distress EENT: other (Nasal cannula at 6 L, approximately his baseline) Neck: normal inspection (No obvious jugular) Respiratory: decreased breath sounds, rales (At bases, right greater than left) , wheezing, prolonged expiration, No rhonchi (Central congestion with cough) Cardiac/Chest: regular rate, rhythm (Distant heart tones) Abdomen: normal bowel sounds, non-tender, soft Skin: normal color, warm/dry Extremities: pedal edema (Trace +) Neuro/Psych: no motor/sensory deficits (Moves all extremities equally), No cognition abnormalities (Secondary to dementia. Pleasant, cooperative) ICD10 Worksheet Patient Problems: Problems Problem Status Onset Chronic Disease Mgmt/Transitional Care Acute Altered mental status Acute Hypoxia Acute Hypoxemia Acute Dementia Acute Pneumonia Acute
[2017-01-24] MEDS: TAMSULOSIN HCL 0.4 MG CAP PO SCH (20:39)
[2017-01-25] MEDS: PIPERACILLIN/TAZO 3.375 GM/DEX 50 ML IV SCH ×5 (01:33→21:53)
[2017-01-25] MEDS: IPRATROPIUM/ALBUTEROL 3 ML DEYVIAL IH SCH ×6 (01:49→21:43)
[2017-01-25] MEDS ORDERED: VANCOMYCIN 1.25 GM in D5W 250 ML IV SCH (08:00)
[2017-01-25] MEDS: risperiDONE 2 MG TAB PO SCH ×2 (08:04→21:22)
[2017-01-25] MEDS: methylPREDNISolone SOD SUCC 125 MG/2 ML VIAL IVP SCH ×2 (08:04→21:22)
[2017-01-25] MEDS: GABAPENTIN 300 MG CAP PO SCH ×2 (08:04→21:21)
[2017-01-25] MEDS: guaiFENesin 600 MG TAB.ER PO SCH ×2 (08:04→21:22)
[2017-01-25] MEDS: FLUoxetine 20 MG CAP PO SCH (08:04)
[2017-01-25] MEDS: PANTOPRAZOLE SODIUM 40 MG TAB PO SCH (08:04)
[2017-01-25] MEDS: BENZTROPINE MESYLATE 1 MG TAB PO SCH (08:04)
[2017-01-25] MEDS: FERROUS SULFATE 325 MG TAB PO SCH (08:05)
[2017-01-25] MEDS: clonazePAM 0.5 MG TAB PO SCH ×3 (08:05→21:21)
[2017-01-25] MEDS: DOCUSATE SODIUM 100 MG CAP PO SCH ×2 (08:05→21:22)
[2017-01-25] MEDS: levETIRAcetam 500 MG TAB PO SCH ×2 (08:05→21:22)
[2017-01-25] MEDS: ENOXAPARIN 40 MG/0.4 ML SYR SC SCH (08:10)
[2017-01-25 09:07] LABS: % IMMATURE GRANULYOCYTES 0.5 % (0.0-1.1); ABSOLUTE IMMATURE GRANULOCYTES 0.03 10^3/uL (0.00-0.10); ADD DIFF? NO; ADD MORPH? NO; ADD SCAN? NO; ATYPICAL LYMPHOCYTE FLAG 90 (0-99); FRAGMENT RBC FLAG 20 (0-99); HEMATOCRIT 40.2 % (40.0-51.0); LEFT SHIFT FLG 0 (0-99); LIPEMIA HEMOLYSIS FLAG 70 (0-99); MEAN CELL HEMOGLOBIN 25.5 pg (27.9-34.1); MEAN CELL HEMOGLOBIN CONCENTR. 29.9 g/dL (32.4-36.7); MEAN CELL VOLUME 85.5 fL (81.5-99.8); MEAN PLATELET VOLUME 10.8 fL (8.7-11.7); PLATELET CLUMPS FLAG 10 (0-99); PLATELET COUNT 259 10^3/uL (150-400); RED CELL DISTRIBUTION WIDTH 19.9 % (11.5-15.2)
[2017-01-25] MEDS: BUDESONIDE 0.5 MG/2 ML AMPUL.NEB IH SCH ×2 (09:12→21:43)
--- NOTE | 2017-01-25 13:32 | HOSPPROG ---
Hospitalist Progress Note Assessment/Plan: Acute on chronic hypoxemic respiratory failure in setting of HCAP and COPD exacerbation (improving) - now off Vapotherm -DC Vanco and continue Zosyn D#5/ -Cont q4h duoneb, q2h prn albuterol -will defer steroid dosing to Dr. Ortiz - Mucinex Bipolar - cont outpt meds including risperdal, cogentin, ssri, klonopin. requiring prn haldol for behavioral disturbances / impulsivity and agitation, though this is improved today. Seizure disorder - seizure free here, cont Keppra. Dementia Sleep apnea - contributing to respiratory failure GERD - PPI DNR Dispo - cont inpt. Return to [place] next few days Ex-, ?Francisca is MDPOA Subjective: still reports shortness of breath. no fevers or chills Objective: Vital Signs Temp Pulse Resp BP Pulse Ox 36.6 C 88 18 137/79 H 91 L 01/25/17 07:43 01/25/17 12:31 01/25/17 12:31 01/25/17 07:43 01/25/17 12:31 Microbiology 01/22/17 09:00 - Final Sputum, Expectorated Laboratory Results 01/25/17 08:55 01/24/17 05:15 01/24/17 01/25/17 01/26/17 05:59 05:59 05:59 Intake Total 3255 1900 240 Output Total 2350 1250 1040 Balance 905 650 -800 PT 15.8 SEC (12.0-15.0) H 01/21/17 15:58 INR 1.26 (0.83-1.16) H 01/21/17 15:58 - Physical Exam Constitutional: chronically ill appearing Cardiovascular: regular rate and rhythym, no murmur, rub, or gallop Respiratory: no respiratory distress, no rales or rhonchi, clear to auscultation , reduced air movement, expiratory wheeze Gastrointestinal: normoactive bowel sounds, soft, non-tender abdomen, no palpable masses ICD10 Worksheet Patient Problems: Problems Problem Status Onset Chronic Disease [facility]/Transitional Care Acute Altered mental status Acute Hypoxia Acute Hypoxemia Acute Dementia Acute Pneumonia Acute
[2017-01-25] MEDS: OXYCODONE/APAP 5/325 TAB PO PRN (13:42)
[2017-01-25] MEDS: TAMSULOSIN HCL 0.4 MG CAP PO SCH (21:22)
[2017-01-26] MEDS: IPRATROPIUM/ALBUTEROL 3 ML DEYVIAL IH SCH ×3 (02:34→08:40)
[2017-01-26] MEDS: PIPERACILLIN/TAZO 3.375 GM/DEX 50 ML IV SCH ×2 (05:03→09:27)
[2017-01-26 07:09] VITALS: BP 133/76; TEMP 98.2
[2017-01-26] MEDS: DOCUSATE SODIUM 100 MG CAP PO SCH (08:15)
[2017-01-26] MEDS: clonazePAM 0.5 MG TAB PO SCH (08:16)
[2017-01-26] MEDS: PANTOPRAZOLE SODIUM 40 MG TAB PO SCH (08:17)
[2017-01-26] MEDS: FLUoxetine 20 MG CAP PO SCH (08:17)
[2017-01-26] MEDS: risperiDONE 2 MG TAB PO SCH (08:17)
[2017-01-26] MEDS: levETIRAcetam 500 MG TAB PO SCH (08:18)
[2017-01-26] MEDS: FERROUS SULFATE 325 MG TAB PO SCH (08:18)
[2017-01-26] MEDS: guaiFENesin 600 MG TAB.ER PO SCH (08:19)
[2017-01-26] MEDS: BENZTROPINE MESYLATE 1 MG TAB PO SCH (08:19)
[2017-01-26] MEDS: methylPREDNISolone SOD SUCC 125 MG/2 ML VIAL IVP SCH (08:20)
[2017-01-26] MEDS: BUDESONIDE 0.5 MG/2 ML AMPUL.NEB IH SCH (08:39)
[2017-01-26] MEDS: GABAPENTIN 300 MG CAP PO SCH (09:27)
[2017-01-26] MEDS: OXYCODONE/APAP 5/325 TAB PO PRN (09:27)
[2017-01-26] MEDS: ENOXAPARIN 40 MG/0.4 ML SYR SC SCH (09:39)
--- NOTE | 2017-01-26 11:27 | PDIAF ---
- Diagnosis Diagnosis: acute respiratory failure possible HCAP Code Status: Do Not Resuscitate - Medication Management Discharge Medications: Medications to Continue on Transfer Acetaminophen [Tylenol 325mg (*)] 650 mg PO Q6 PRN 12/23/16 [Last Taken 01/18/17 ] Benztropine Mesylate [Cogentin] 1 mg PO DAILY 12/23/16 [Last Taken 01/21/17] Docusate Sodium [Colace 100 MG (*)] 100 mg PO BID 12/23/16 [Last Taken 01/21/17 08:00] Ferrous Sulfate [Ferrous Sulf 325 MG (*)] 325 mg PO DAILY 12/23/16 [Last Taken 01/21/17] Fluticasone/Vilanterol [Breo Ellipta 200-25 Mcg INH] 1 puffs IH DAILY 12/23/16 [ Last Taken 01/21/17] Gabapentin [Neurontin] 600 mg PO BID 12/23/16 [Last Taken 01/21/17 08:00] Multivitamins [Multivitamin (*)] 1 tab PO DAILY 12/23/16 [Last Taken 01/21/17] Omeprazole Magnesium [Prilosec Otc] 20 mg PO DAILY 12/23/16 [Last Taken 01/21/17 ] Sennosides [Senokot] 2 tab PO DAILY PRN 12/23/16 [Last Taken Unknown] Tamsulosin HCl [Flomax 0.4 MG (*)] 0.4 mg PO HS 12/23/16 [Last Taken 01/20/17 20 :00] clonazePAM [Klonopin (*)] 0.25 mg PO TID 12/23/16 [Last Taken 01/21/17 08:00] levETIRAcetam [Keppra 500 mg (*)] 500 mg PO BID 12/23/16 [Last Taken 01/21/17 09 :00] risperiDONE [Risperdal] 2 mg PO BID 12/23/16 [Last Taken 01/21/17 08:00] Ipratropium/Albuterol [Duoneb (*)] 3 ml IH Q6 #0 deyvial 12/26/16 [Last Taken 12:00] FLUoxetine [Prozac 20 MG (*)] 20 mg PO DAILY 01/21/17 [Last Taken 01/21/17] Ipratropium/Albuterol [Duoneb (*)] 3 ml IH Q4 PRN 01/21/17 [Last Taken Unknown] oxyCODONE/APAP 5/325 [Percocet 5/325 (*)] 1 tab PO Q6H PRN 01/21/17 [Last Taken 01/21/17 06:15] Acetaminophen [Tylenol 325mg (*)] 650 mg PO Q4HRS PRN #0 tab 01/26/17 [Last Taken Unknown] Budesonide [Budesonide 0.5MG/2Ml Neb (*)] 0.5 mg IH BID #0 ampul.neb 01/26/17 [ Last Taken Unknown] predniSONE 20 mg PO DAILY #14 tab 01/26/17 [Last Taken Unknown] Discharge Medications: Refer to the Discharge Home Medication list for PRN reason. - Orders Diet Texture: Dysphagia 2 - Mechanically Altered - Chopped, Ground, Thin Liquids , Meds Whole in Puree - Follow Up Care Current Providers and Referrals: Patient,NotPresent [Primary Care Provider] - As per Instructions
[2017-01-26 11:34] VITALS: PULSE 65; RESP 18; O2SAT 94
--- NOTE | 2017-01-26 15:16 | GDS ---
[f rep st] DISCHARGE SUMMARY DISCHARGE DIAGNOSES: 1. Acute on chronic respiratory failure. 2. Possible healthcare-acquired pneumonia. 3. Chronic obstructive pulmonary disease exacerbation. 4. Bipolar disorder. 5. Seizure disorder. 6. Dementia. 7. Sleep apnea. 8. Gastroesophageal reflux disease. HOSPITAL COURSE AND STAY BY PROBLEM: Acute on chronic respiratory failure in the setting of COPD ex acerbation, possible pneumonia: The patient was admitted to the hospital where his oxygen saturatio ns were maintained on Vapotherm high-flow oxygen. Initially, he was treated with vancomycin and Zos yn for presumed healthcare-acquired pneumonia. Throughout the patient's hospital course, he has bee n afebrile with improving respiratory status. He was seen in consultation by Dr. Ted Ortiz who a greed with our treatment plan. On the day of discharge, the patient appears to be breathing near his baseline on 5 L by nasal cannu la. PHYSICAL EXAM: VITAL SIGNS: On day of discharge, blood pressure 133/76, pulse 65, respiratory rate 20, O2 saturation 94% on 5 L nasal cannula. Temperature afebrile. GENERAL: No acute distress. H EART: S1, S2. LUNGS: Clear. No respiratory distress. DIAGNOSTIC STUDIES: During this hospital stay, blood cultures done on admission, no growth. PICC l ine insertion on 01/24/2017. DISCHARGE MEDICATIONS: Please refer to discharge medication reconciliation in [facility] for details. DISCHARGE INSTRUCTIONS: The patient will be discharged back to senior living for further care. /[id number]/MODL
[2017-01-26] MEDS ORDERED: PIPERACILLIN SODIUM/TAZOBACTAM 3.375 GM in D5W 50 ML IV SCH (22:00)
== END 2017-01-26 15:25 | DRG 193 ==
LOC: EDBD → EDUNIT# → F1N 19:41
PROVIDERS: ADMIT Internal Medicine; ATTEND Internal Medicine
PROC: 02HV33Z Insertion of Infusion Device into Superior Vena Cava, Percutaneous Approach (ICD-10-PCS; principal; 2017-01-24)
DX: J18.0 Bronchopneumonia, unspecified organism (principal); J96.21 Acute and chronic respiratory failure with hypoxia; J44.1 Chronic obstructive pulmonary disease with (acute) exacerbation; F03.91 Unspecified dementia, unspecified severity, with behavioral disturbance; F31.9 Bipolar disorder, unspecified; K21.9 Gastro-esophageal reflux disease without esophagitis; Z99.81 Dependence on supplemental oxygen; F41.9 Anxiety disorder, unspecified; G40.909 Epilepsy, unspecified, not intractable, without status epilepticus; D64.9 Anemia, unspecified; Z66 Do not resuscitate
CPT/HCPCS: 92610-GN; 96365; 97110-GP; 97161-GP; 97165-GO; 97535-GO; C1751; G8978-GP-CJ; G8979-GP-CI; G8987-GO-CI; G8988-GO-CI; G8996-GN-CI; G8997-GN-CI; G8998-GN-CI; J0692; J1650; J2543; J3370; J7626